=== PATIENT | male | born 2000 | race Caucasian/White ===

== ENCOUNTER 2021-05-21 18:44 | Emergency (ER) | payer SELFPAY | END 2021-05-21 19:21 | disposition left against medical advice (07) | LOC: ER 18:46 | DX: F20.9 Schizophrenia, unspecified (principal) ==

== ENCOUNTER 2021-05-22 12:33 | Emergency (ER) | payer SELFPAY | END 2021-05-22 12:45 | disposition left against medical advice (07) | LOC: EDUNIT# 12:33 → ER 12:34 | DX: F20.9 Schizophrenia, unspecified (principal) ==

== ENCOUNTER 2021-05-26 06:57 | Emergency (ER) | payer SELFPAY ==
[~2021-05-26] VITALS: Ht 172 cm; Wt 89.8 kg
[2021-05-26 07:10] VITALS: BP 186/120
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
[2021-05-26 07:58] LABS: BASOPHILS % (AUTO) 0 % (0-10); EOSINOPHILS % (AUTO) 0 % (0-10); HEMATOCRIT 44 % (40-54); LYMPHOCYTES # (AUTO) 1.5 10^3/uL (1.0-4.0); LYMPHOCYTES % (AUTO) 20 % (12-44); MEAN CORPUSCULAR HEMOGLOBIN 31 pg (25-34); MEAN CORPUSCULAR HGB CONC 34 g/dL (32-36); MEAN CORPUSCULAR VOLUME 90 fL (80-99); MEAN PLATELET VOLUME 9.3 fL (9.0-12.2); MONOCYTES # (AUTO) 0.7 10^3/uL (0.0-1.0); MONOCYTES % (AUTO) 10 % (0-12); NEUTROPHILS % (AUTO) 69 % (42-75); PLATELET COUNT 217 10^3/uL (130-400); WHITE BLOOD COUNT 7.3 10^3/uL (4.3-11.0)
[2021-05-26 08:00] LABS: CHLORIDE 102 MMOL/L (98-107); POTASSIUM 3.8 MMOL/L (3.6-5.0); SODIUM 136 MMOL/L (135-145)
[2021-05-26] MEDS ORDERED: OLANZapine 5 MG ODT (ZyPREXA ZYDIS) PO ONE (08:00)
[2021-05-26 08:01] LABS: ALBUMIN 4.3 GM/DL (3.2-4.5)
[2021-05-26 08:03] LABS: GLUCOSE 129 MG/DL (70-105); TOTAL PROTEIN 7.1 GM/DL (6.4-8.2)
[2021-05-26 08:04] LABS: CARBON DIOXIDE 22 MMOL/L (21-32)
[2021-05-26 08:05] LABS: BILIRUBIN,TOTAL 0.5 MG/DL (0.1-1.0)
[2021-05-26 08:07] LABS: ALKALINE PHOSPHATASE 73 U/L (40-136); GFR ESTIMATED 135
[2021-05-26 08:08] LABS: AMPHETAMINE SCREEN, URINE NEGATIVE (NEGATIVE); BARBITURATE SCREEN URINE NEGATIVE (NEGATIVE); BENZODIAZEPINES SCREEN URINE NEGATIVE (NEGATIVE); BUN/CREATININE RATIO 7; CANNABINOID SCREEN, URINE POSITIVE (NEGATIVE); COCAINE SCREEN URINE NEGATIVE (NEGATIVE); METHADONE STAT NEGATIVE (NEGATIVE); METHAMPHETAMINE SCREEN URINE S NEGATIVE (NEGATIVE); OPIATE SCREEN URINE NEGATIVE (NEGATIVE); OXYCODONE STAT NEGATIVE (NEGATIVE); PROPOXYPHENE STAT NEGATIVE (NEGATIVE); TRICYCLIC ANTIDEPRESSANTS SCRE NEGATIVE (NEGATIVE)
[2021-05-26 08:10] LABS: ALANINE AMINOTRANSFERASE 95 U/L (0-55); SALICYLATE < 5.0 MG/DL (5.0-20.0)
[2021-05-26 08:11] LABS: ACETAMINOPHEN < 10 UG/ML (10-30)
[2021-05-26] MEDS ORDERED: LORazepam 0.5 MG (ATIVAN) TABLET PO STA (11:59)
[2021-05-27] MEDS ORDERED: OLANZapine 5 MG ODT (ZyPREXA ZYDIS) PO ONE (06:30)
== END 2021-05-27 07:53 | disposition short-term general hospital (02) ==
LOC: EDUNIT# 06:57 → ER 06:59
DX: F20.9 Schizophrenia, unspecified (principal); Z20.822 Contact with and (suspected) exposure to COVID-19
CPT/HCPCS: 80053; 80306; 85025; 87636; 93005; 99283; G0480 ×3; 36415; 80320; 80329

== ENCOUNTER 2021-12-24 06:10 | Emergency (ER) | payer SELFPAY ==
[~2021-12-24] VITALS: Ht 172 cm; Wt 88.0 kg
--- NOTE | 2021-12-24 06:32 | ED General ---
General Stated Complaint: PAINFUL LUMP ON L SIDE OF LOW BACK Source of Information: Patient Exam Limitations: No Limitations History of Present Illness Date Seen by Provider: Dec 24, 2021 Time Seen by Provider: 06:15 Initial Comments 21-year-old male presents to the emergency department today for left low back pain. He states symptoms present for a couple of months. He is concerned it might be his liver. He denies any fevers or chills. No urinary symptoms. No changes in his bowels. He has not tried anything for symptoms. Pain is dull throbbing without radiation. No aggravating or alleviating factors. Mild. Allergies and Home Medications Allergies Coded Allergies: No Known Drug Allergies (Unverified , 05/26/21) Patient Home Medication List Home Medication List Reviewed: Yes Review of Systems Review of Systems Constitutional: no symptoms reported EENTM: no symptoms reported Respiratory: no symptoms reported Cardiovascular: no symptoms reported Gastrointestinal: no symptoms reported Genitourinary: no symptoms reported Musculoskeletal: back pain Skin: no symptoms reported Psychiatric/Neurological: No Symptoms Reported Hematologic/Lymphatic: No Symptoms Reported Immunological/Allergic: no symptoms reported Past Vywfpfh-Dxibrv-Oguyzn Hx Patient Social History Tobacco Use?: No Use of E-Cig and/or Vaping dev: No Substance use?: Yes Substance type: Marijuana Immunizations Up To Date First/Initial COVID19 Vaccinat: UNK Past Medical History Surgery/Hospitalization HX: Tonsillectomy Family Medical History Reviewed Nursing Family Hx No Pertinent Family Hx Physical Exam Vital Signs Capillary Refill : Height, Weight, BMI Height: '" Weight: lbs. oz. kg; 30.00 BMI Method: General Appearance: No Apparent Distress, WD/WN HEENT: Normal ENT Inspection, Pharynx Normal Neck: Normal Inspection, Non Tender Respiratory: Chest Non Tender, Lungs Clear, Normal Breath Sounds, No Accessory Muscle Use, No Respiratory Distress Cardiovascular: Regular Rate, Rhythm, No Edema, No Gallop, No JVD, No Murmur, Normal Peripheral Pulses Gastrointestinal: Normal Bowel Sounds, No Organomegaly, No Pulsatile Mass, Non Tender, Soft Back: Normal Inspection, No CVA Tenderness, No Vertebral Tenderness Extremity: Normal Capillary Refill, Normal Inspection, Normal Range of Motion, Non Tender, No Calf Tenderness, No Pedal Edema Neurologic/Psychiatric: Alert, Oriented x3, No Motor/Sensory Deficits Skin: Normal Color, Warm/Dry Lymphatic: No Adenopathy Progress/Results/Core Measures Suspected Sepsis SIRS Temperature: Pulse: Respiratory Rate: Blood Pressure / Mean: Results/Orders Vital Signs/I&O Capillary Refill : Departure Communication (Admissions) Patient is hemodynamically stable. He has pain in his left low back lateral of the midline. No flank pains prior. Very benign exam and unable to reproduce the pain on exam today. No urinary symptoms. No medical comorbidities or red flag type symptoms. He states he peed in the waiting room prior to coming to the room and will be able to urinate again for quite some time. He declines waiting for urine at this time. He is discharged in stable condition with supportive care. Impression Primary Impression: Left low back pain Qualified Codes: M54.50 - Low back pain, unspecified Disposition: 01 HOME, SELF-CARE Condition: Stable Departure-Patient Inst. Referrals: [facility] (PCP/Family) Primary Care Physician Patient Instructions: Low Back Pain in Adults Add. Discharge Instructions: Please use ibuprofen and Tylenol as needed for pain. You have opted not to wait to give a urine sample. You may want to follow-up with your primary doctor to provide this. Your exam and vital signs are reassuring. Turn to the emergency department for any severe concerns. Follow-up with primary physician for any nonemergent needs TRAVIS REYNOSO DO Dec 24, 2021 06:32
[2021-12-24 06:45] VITALS: BP 158/98
== END 2021-12-24 06:46 | disposition home or self-care (01) ==
LOC: EDUNIT# 06:10 → ER 06:14
DX: M54.50 Low back pain, unspecified (principal)
CPT/HCPCS: 99281

== ENCOUNTER 2022-02-10 11:04 | Emergency (ER) | payer SELFPAY ==
[~2022-02-10] VITALS: Ht 172 cm; Wt 86.0 kg
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
[2022-02-10 11:43] LABS: BILIRUBIN,URINE NEGATIVE (NEGATIVE); CLARITY,URINE CLEAR; COLOR,URINE YELLOW; GLUCOSE, URINE (UA) NEGATIVE (NEGATIVE); KETONES,URINE NEGATIVE (NEGATIVE); LEUKOCYTE ESTERASE ,URINE NEGATIVE (NEGATIVE); NITRITE,URINE NEGATIVE (NEGATIVE); PROTEIN,URINE NEGATIVE (NEGATIVE)
[2022-02-10 11:48] LABS: BASOPHILS % (AUTO) 1 % (0-10); EOSINOPHILS % (AUTO) 0 % (0-10); HEMATOCRIT 43 % (40-54); LYMPHOCYTES # (AUTO) 1.4 10^3/uL (1.0-4.0); LYMPHOCYTES % (AUTO) 20 % (12-44); MEAN CORPUSCULAR HEMOGLOBIN 30 pg (25-34); MEAN CORPUSCULAR HGB CONC 35 g/dL (32-36); MEAN CORPUSCULAR VOLUME 86 fL (80-99); MEAN PLATELET VOLUME 8.8 fL (9.0-12.2); MONOCYTES # (AUTO) 0.6 10^3/uL (0.0-1.0); MONOCYTES % (AUTO) 9 % (0-12); NEUTROPHILS # (AUTO) 4.7 10^3/uL (1.8-7.8); NEUTROPHILS % (AUTO) 70 % (42-75); PLATELET COUNT 217 10^3/uL (130-400); WHITE BLOOD COUNT 6.7 10^3/uL (4.3-11.0)
[2022-02-10 11:53] LABS: BACTERIA,URINE NEGATIVE /HPF
[2022-02-10 11:54] LABS: ALBUMIN 4.7 GM/DL (3.2-4.5); CHLORIDE 103 MMOL/L (98-107); POTASSIUM 3.9 MMOL/L (3.6-5.0); SODIUM 139 MMOL/L (135-145)
[2022-02-10 11:56] LABS: CALCIUM 9.5 MG/DL (8.5-10.1)
[2022-02-10 11:56] LABS: AMPHETAMINE SCREEN, URINE NEGATIVE (NEGATIVE); BARBITURATE SCREEN URINE NEGATIVE (NEGATIVE); BENZODIAZEPINES SCREEN URINE NEGATIVE (NEGATIVE); CANNABINOID SCREEN, URINE POSITIVE (NEGATIVE); COCAINE SCREEN URINE NEGATIVE (NEGATIVE); METHADONE STAT NEGATIVE (NEGATIVE); OPIATE SCREEN URINE NEGATIVE (NEGATIVE); OXYCODONE STAT NEGATIVE (NEGATIVE); PROPOXYPHENE STAT NEGATIVE (NEGATIVE); TRICYCLIC ANTIDEPRESSANTS SCRE NEGATIVE (NEGATIVE)
[2022-02-10 11:57] LABS: GLUCOSE 96 MG/DL (70-105); TOTAL PROTEIN 7.3 GM/DL (6.4-8.2)
[2022-02-10 11:58] LABS: CARBON DIOXIDE 24 MMOL/L (21-32)
[2022-02-10 11:59] LABS: BILIRUBIN,TOTAL 1.6 MG/DL (0.1-1.0)
[2022-02-10 12:01] LABS: ALKALINE PHOSPHATASE 78 U/L (40-136); GFR ESTIMATED 129
[2022-02-10 12:02] LABS: BUN/CREATININE RATIO 10
[2022-02-10 12:03] LABS: SALICYLATE < 5.0 MG/DL (5.0-20.0)
[2022-02-10 12:04] LABS: ALANINE AMINOTRANSFERASE 32 U/L (0-55)
[2022-02-10 12:10] LABS: ACETAMINOPHEN < 10 UG/ML (10-30)
[2022-02-10 20:13] VITALS: BP 153/89
== END 2022-02-10 20:13 ==
LOC: EDUNIT# 11:04 → ER 11:06
DX: R45.851 Suicidal ideations (principal); F17.200 Nicotine dependence, unspecified, uncomplicated; Z28.311 Partially vaccinated for COVID-19; Z20.822 Contact with and (suspected) exposure to COVID-19
CPT/HCPCS: 80053; 80306; 81000; 85025; 87636; 99283; G0480 ×3; 36415; 80320; 80329

== ENCOUNTER 2022-05-23 10:56 | Emergency (ER) | payer MEDICAID ==
[~2022-05-23] VITALS: Ht 175.3 cm; Wt 99.8 kg
[2022-05-23 12:22] LABS: BASOPHILS % (AUTO) 0 % (0-10); EOSINOPHILS % (AUTO) 1 % (0-10); HEMATOCRIT 43 % (40-54); HEMOGLOBIN 14.8 g/dL (13.3-17.7); LYMPHOCYTES # (AUTO) 1.6 10^3/uL (1.0-4.0); LYMPHOCYTES % (AUTO) 22 % (12-44); MEAN CORPUSCULAR HEMOGLOBIN 29 pg (25-34); MEAN CORPUSCULAR HGB CONC 35 g/dL (32-36); MEAN CORPUSCULAR VOLUME 85 fL (80-99); MEAN PLATELET VOLUME 8.5 fL (9.0-12.2); MONOCYTES # (AUTO) 0.5 10^3/uL (0.0-1.0); MONOCYTES % (AUTO) 8 % (0-12); NEUTROPHILS % (AUTO) 69 % (42-75); PLATELET COUNT 218 10^3/uL (130-400); WHITE BLOOD COUNT 7.2 10^3/uL (4.3-11.0)
[2022-05-23 12:24] LABS: BILIRUBIN,URINE NEGATIVE (NEGATIVE); CLARITY,URINE CLEAR; COLOR,URINE YELLOW; GLUCOSE, URINE (UA) NEGATIVE (NEGATIVE); KETONES,URINE NEGATIVE (NEGATIVE); LEUKOCYTE ESTERASE ,URINE NEGATIVE (NEGATIVE); NITRITE,URINE NEGATIVE (NEGATIVE); PROTEIN,URINE TRACE (NEGATIVE)
[2022-05-23 12:36] LABS: ALBUMIN 4.5 GM/DL (3.2-4.5); CHLORIDE 103 MMOL/L (98-107); POTASSIUM 3.6 MMOL/L (3.6-5.0); SODIUM 139 MMOL/L (135-145)
[2022-05-23 12:37] LABS: CALCIUM 9.2 MG/DL (8.5-10.1)
[2022-05-23 12:38] LABS: GLUCOSE 120 MG/DL (70-105)
[2022-05-23 12:39] LABS: CARBON DIOXIDE 25 MMOL/L (21-32); TOTAL PROTEIN 7.5 GM/DL (6.4-8.2)
[2022-05-23 12:40] LABS: BILIRUBIN,TOTAL 1.2 MG/DL (0.1-1.0)
[2022-05-23 12:42] LABS: ALKALINE PHOSPHATASE 74 U/L (40-136); AMPHETAMINE SCREEN, URINE NEGATIVE (NEGATIVE); BARBITURATE SCREEN URINE NEGATIVE (NEGATIVE); BENZODIAZEPINES SCREEN URINE NEGATIVE (NEGATIVE); CANNABINOID SCREEN, URINE POSITIVE (NEGATIVE); COCAINE SCREEN URINE NEGATIVE (NEGATIVE); GFR ESTIMATED 129; METHADONE STAT NEGATIVE (NEGATIVE); OPIATE SCREEN URINE NEGATIVE (NEGATIVE); OXYCODONE STAT NEGATIVE (NEGATIVE); PROPOXYPHENE STAT NEGATIVE (NEGATIVE); TRICYCLIC ANTIDEPRESSANTS SCRE NEGATIVE (NEGATIVE)
[2022-05-23 12:44] LABS: BUN/CREATININE RATIO 13
[2022-05-23 12:45] LABS: ALANINE AMINOTRANSFERASE 44 U/L (0-55); SALICYLATE < 5.0 MG/DL (5.0-20.0)
--- NOTE | 2022-05-23 12:46 | ED Psychosocial ---
General Chief Complaint: Suicidal Ideation Risk Stated Complaint: SUICIDAL IDEATION Nursing Triage Note: PT AMBULATE TO TRIAGE WITHOUT DIFFICULTY WITH C/O SUICIDAL THOUGHTS X2. PT STATES HE WOULD CUT WRISTS "MAIN ARTERY" WITH A RAZOR BLADE. PT STATES HE CALLED [facility] AND COULD NOT GET AN APPT. Source: patient Exam Limitations: no limitations (YANELY PALMER) History of Present Illness Date Seen by Provider: May 23, 2022 Time Seen by Provider: 12:44 Initial Comments Patient is a 21-year-old male with a history of schizophrenia, bipolar, depress ion, anxiety who presents ED with suicidal thoughts and hearing voices. Reports a history of mental health concerns over the past 2 years. Does see a behavioral health specialist at [facility]. Not currently on medication. He reports increased stressors. Patient states he is sad because of what is going on in the world. He states he is hearing voices telling him to hurt others as well as himself. He states he would not act upon this. He had recent suicidal thoughts of using a razor blade to cut one of his arteries to bleed out. 1 week ago he drank a bottle of liquor and took 8 pills of Xanax to drown his thoughts. Patient is currently voluntary and seeking help. Denies eyes of any chest pain, shortness of breath, drug use, headache, dizziness, visual changes. (YANELY PALMER) Allergies and Home Medications Allergies Coded Allergies: No Known Drug Allergies (Unverified , 05/26/21) Patient Home Medication List Home Medication List Reviewed: Yes (YANELY PALMER) Review of Systems Constitutional: No chills, No diaphoresis, No malaise, No weakness EENTM: No hearing loss, No blurred vision, No double vision Respiratory: No cough, No dyspnea on exertion Cardiovascular: No chest pain, No edema Gastrointestinal: No abdominal pain, No diarrhea, No nausea, No vomiting Genitourinary: No decreased output, No discharge, No dysuria, No frequency Musculoskeletal: No back pain, No joint pain Skin: No change in color, No change in hair/nails (YANELY PALMER) All Other Systems Reviewed Negative Unless Noted: Yes (YANELY PALMER) Past Iztulpp-Nilqfu-Flddiw Hx Patient Social History Tobacco Use?: Yes Tobacco type used: Cigarettes Smoking Status: Current Everyday Smoker Smokeless Tobacco Frequency: Never a User Use of E-Cig and/or Vaping dev: No Use of E-Cig and/or Vaping Luther: Never a User Substance use?: No Alcohol Use?: Yes Alcohol Frequency: Rarely Pt feels they are or have been: No (YANELY PALMER) Immunizations Up To Date First/Initial COVID19 Vaccinat: UNK Second COVID19 Vaccination Ravindra: UNK Third COVID19 Vaccination Date: UNK (YANELY PALMER) Past Medical History Surgery/Hospitalization HX: Tonsillectomy (YANELY PALMER) Family Medical History No Pertinent Family Hx (YANELY PALMER) Physical Exam Vital Signs - First Documented 05/23/22 11:40 Temp 36.7 Pulse 90 Resp 17 B/P (MAP) 129/81 (97) O2 Delivery Room Air (LESIA BREWER MD) Capillary Refill : Less Than 3 Seconds (YANELY PALMER) Height, Weight, BMI Height: '" Weight: lbs. oz. 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, no motor/sensory deficits, alert, normal mood/affect, oriented x 3 Appearance/Memory: appropriate appearance Behavior/Eye Contact: cooperative, good eye contact, normal speech Thoughts/Hallucinations: auditory hallucinations; No incoherent, No tactile hallucinations Skin: normal color, warm/dry (YANELY PALMER) Progress/Results/Core Measures Results/Orders Lab Results Laboratory Tests Test 05/23/22 12:13 05/23/22 12:30 05/23/22 13:06 Range/Units White Blood Count 7.2 4.3-11.0 10^3/uL Red Blood Count 5.06 4.30-5.52 10^6/uL Hemoglobin 14.8 13.3-17.7 g/dL Hematocrit 43 40-54 % Mean Corpuscular Volume 85 80-99 fL Mean Corpuscular Hemoglobin 29 25-34 pg Mean Corpuscular Hemoglobin Concent 35 32-36 g/dL Red Cell Distribution Width 12.6 10.0-14.5 % Platelet Count 218 130-400 10^3/uL Mean Platelet Volume 8.5 L 9.0-12.2 fL Immature Granulocyte % (Auto) 0 % Neutrophils (%) (Auto) 69 42-75 % Lymphocytes (%) (Auto) 22 12-44 % Monocytes (%) (Auto) 8 0-12 % Eosinophils (%) (Auto) 1 0-10 % Basophils (%) (Auto) 0 0-10 % Neutrophils # (Auto) 5.0 1.8-7.8 10^3/uL Lymphocytes # (Auto) 1.6 1.0-4.0 10^3/uL Monocytes # (Auto) 0.5 0.0-1.0 10^3/uL Eosinophils # (Auto) 0.0 0.0-0.3 10^3/uL Basophils # (Auto) 0.0 0.0-0.1 10^3/uL Immature Granulocyte # (Auto) 0.0 0.0-0.1 10^3/uL Urine Color YELLOW Urine Clarity CLEAR Urine pH 7.0 5-9 Urine Specific [place] 1.020 1.016-1.022 Urine Protein TRACE H NEGATIVE Urine Glucose (UA) NEGATIVE NEGATIVE Urine Ketones NEGATIVE NEGATIVE Urine Nitrite NEGATIVE NEGATIVE Urine Bilirubin NEGATIVE NEGATIVE Urine Urobilinogen 1.0 < = 1.0 MG/DL Urine Leukocyte Esterase NEGATIVE NEGATIVE Urine RBC (Auto) NEGATIVE NEGATIVE Urine RBC RARE /HPF Urine WBC RARE /HPF Urine Squamous Epithelial Cells RARE /HPF Urine Crystals PRESENT H /LPF Urine Amorphous Sediment MOD CHANI PHOSPHATE H /LPF Urine Bacteria FEW H /HPF Urine Casts NONE /LPF Urine Mucus MODERATE H /LPF Urine Culture Indicated NO Sodium Level 139 135-145 MMOL/L Potassium Level 3.6 3.6-5.0 MMOL/L Chloride Level 103 98-107 MMOL/L Carbon Dioxide Level 25 21-32 MMOL/L Anion Gap 11 5-14 MMOL/L Blood Urea Nitrogen 10 7-18 MG/DL Creatinine 0.80 0.60-1.30 MG/DL Estimat Glomerular Filtration Rate 129 BUN/Creatinine Ratio 13 Glucose Level 120 H 70-105 MG/DL Calcium Level 9.2 8.5-10.1 MG/DL Corrected Calcium 8.8 8.5-10.1 MG/DL Total Bilirubin 1.2 H 0.1-1.0 MG/DL Aspartate Amino Transf (AST/SGOT) 24 5-34 U/L Alanine Aminotransferase (ALT/SGPT) 44 0-55 U/L Alkaline Phosphatase 74 40-136 U/L Total Protein 7.5 6.4-8.2 GM/DL Albumin 4.5 3.2-4.5 GM/DL Salicylates Level < 5.0 L 5.0-20.0 MG/DL Urine Opiates Screen NEGATIVE NEGATIVE Urine Oxycodone Screen NEGATIVE NEGATIVE Urine Methadone Screen NEGATIVE NEGATIVE Urine Propoxyphene Screen NEGATIVE NEGATIVE Acetaminophen Level < 10 L 10-30 UG/ML Urine Barbiturates Screen NEGATIVE NEGATIVE Ur Tricyclic Antidepressants Screen NEGATIVE NEGATIVE Urine Phencyclidine Screen NEGATIVE NEGATIVE Urine Amphetamines Screen NEGATIVE NEGATIVE Urine Methamphetamines Screen NEGATIVE NEGATIVE Urine Benzodiazepines Screen NEGATIVE NEGATIVE Urine Cocaine Screen NEGATIVE NEGATIVE Urine Cannabinoids Screen POSITIVE H NEGATIVE Serum Alcohol < 10 <10 MG/DL Influenza Type A (RT-PCR) Not Detected Not Detecte Influenza Type B (RT-PCR) Not Detected Not Detecte SARS-CoV-2 RNA (RT-PCR) Not Detected Not Detecte (LESIA BREWER MD) My Orders Orders - LESIA BREWER MD Ua Culture If Indicated (05/23/22 11:37) Cbc With Automated Diff (05/23/22 11:37) Comprehensive Metabolic Panel (05/23/22 11:37) Alcohol (05/23/22 11:37) Drug Screen Stat (Urine) (05/23/22 11:37) Acetaminophen (05/23/22 11:37) Salicylate (05/23/22 11:37) Ekg Tracing (05/23/22 11:37) Ed Iv/Invasive Line Start (05/23/22 11:37) Monitor-Rhythm Ecg Trace Only (05/23/22 11:37) Bh Status Checks/Observation O Q15M (05/23/22 11:37) (LESIA BREWER MD) Vital Signs/I&O 05/23/22 05/23/22 11:40 17:34 Temp 36.7 36.7 Pulse 90 81 Resp 17 18 B/P (MAP) 129/81 (97) 124/74 O2 Delivery Room Air Room Air (LESIA BREWER MD) Blood Pressure Mean: 97 Departure Communication (PCP) Patient with auditory hallucinations. Patient with a history of SI. Not cu rrent suicidal. Thoughts few days ago of using a razor blade to cut himself and potentially bleed out. Reports drinking a bottle of liquor about a week ago with 8 pills of Xanax. Positive for marijuana. Lab work was otherwise unremarkable. Cooperative. Auditory hallucinations actively. Patient is calm and polite. Patient medically stable. Patient was evaluated by behavioral health. Recommended inpatient. Currently voluntary. Patient was accepted at [facility] by Dr. Graham. Patient states before discharge he wanted to be checked for sexual transmitted infection. Urine pending for chlamydia and gonorrhea. Was not treated empirically. History of STD currently sexually active. Reports some mild burning with urination. We will follow-up with culture (YANELY PALMER) Impression Primary Impression: Suicidal ideation Disposition: ADMITTED INPATIENT Condition: Stable Transfer Transfer Reason: Exceeds level of care Time Spoke to Accepting Phy: 15:42 Transfer Progress Notes accepting Dr. Graham Transfer Time: 15:42 Transfer Facility: [facility] Method of Transfer: Private Vehicle (YANELY PALMER) Departure-Patient Inst. Referrals: [facility] (PCP/Family) Primary Care Physician Patient Instructions: OUTPT MENTAL HEALTH SERVICES ATTENDING PHYSICIAN NOTE: I was physically present as attending physician in the emergency department during the care of this patient, but I was not directly involved in the decision making or delivery of care for this patient. (LESIA BREWER MD) YANELY PALMER May 23, 2022 12:46 LESIA BREWER MD May 23, 2022 20:55
[2022-05-23 12:51] LABS: ACETAMINOPHEN < 10 UG/ML (10-30); AMORPHOUS SEDIMENT,UR MOD AMOR PHOSPHATE /LPF; BACTERIA,URINE FEW /HPF; RBC,URINE RARE /HPF; SQUAMOUS EPITHELIAL CELL,UR RARE /HPF; WBC,URINE RARE /HPF
[2022-05-23 17:34] VITALS: BP 124/74
== END 2022-05-23 17:37 ==
LOC: EDUNIT# 10:56 → ER 11:00
DX: R45.851 Suicidal ideations (principal); R44.0 Auditory hallucinations; R30.9 Painful micturition, unspecified; F17.210 Nicotine dependence, cigarettes, uncomplicated; Z86.59 Personal history of other mental and behavioral disorders; Z20.822 Contact with and (suspected) exposure to COVID-19
CPT/HCPCS: 80053; 80306; 81000; 85025; 87491; 87591; 87636; 93005; 99285; G0480 ×3; 36415; 80320; 80329

== ENCOUNTER 2022-06-06 19:38 | Emergency (ER) | payer MEDICAID ==
[~2022-06-06] VITALS: Ht 172 cm; Wt 102.5 kg
[2022-06-06] MEDS ORDERED: OLANZapine 5 MG ODT (ZyPREXA ZYDIS) SL STA (19:53)
[2022-06-06] MEDS ORDERED: LACTATED RINGERS 1,000 ML IV ONE (20:00)
[2022-06-06 20:04] LABS: BASOPHILS % (AUTO) 0 % (0-10); EOSINOPHILS # (AUTO) 0.1 10^3/uL (0.0-0.3); EOSINOPHILS % (AUTO) 1 % (0-10); HEMATOCRIT 44 % (40-54); HEMOGLOBIN 15.1 g/dL (13.3-17.7); LYMPHOCYTES # (AUTO) 2.4 10^3/uL (1.0-4.0); LYMPHOCYTES % (AUTO) 28 % (12-44); MEAN CORPUSCULAR HEMOGLOBIN 29 pg (25-34); MEAN CORPUSCULAR HGB CONC 35 g/dL (32-36); MEAN CORPUSCULAR VOLUME 84 fL (80-99); MEAN PLATELET VOLUME 8.6 fL (9.0-12.2); MONOCYTES # (AUTO) 0.8 10^3/uL (0.0-1.0); MONOCYTES % (AUTO) 9 % (0-12); NEUTROPHILS # (AUTO) 5.3 10^3/uL (1.8-7.8); NEUTROPHILS % (AUTO) 62 % (42-75); PLATELET COUNT 241 10^3/uL (130-400); WHITE BLOOD COUNT 8.6 10^3/uL (4.3-11.0)
[2022-06-06 20:06] LABS: BILIRUBIN,URINE NEGATIVE (NEGATIVE); CLARITY,URINE CLEAR; COLOR,URINE YELLOW; GLUCOSE, URINE (UA) NEGATIVE (NEGATIVE); KETONES,URINE NEGATIVE (NEGATIVE); LEUKOCYTE ESTERASE ,URINE NEGATIVE (NEGATIVE); NITRITE,URINE NEGATIVE (NEGATIVE); PROTEIN,URINE 1+ (NEGATIVE)
[2022-06-06 20:13] LABS: ALBUMIN 4.6 GM/DL (3.2-4.5); CHLORIDE 102 MMOL/L (98-107); POTASSIUM 3.7 MMOL/L (3.6-5.0); SODIUM 140 MMOL/L (135-145)
[2022-06-06 20:14] LABS: CALCIUM 9.5 MG/DL (8.5-10.1)
[2022-06-06 20:15] LABS: GLUCOSE 143 MG/DL (70-105); TOTAL PROTEIN 7.7 GM/DL (6.4-8.2)
[2022-06-06 20:16] LABS: CARBON DIOXIDE 25 MMOL/L (21-32)
[2022-06-06 20:17] LABS: BILIRUBIN,TOTAL 0.5 MG/DL (0.1-1.0)
[2022-06-06 20:19] LABS: WBC,URINE 0-2 /HPF
[2022-06-06 20:19] LABS: ALKALINE PHOSPHATASE 77 U/L (40-136); CREATININE SERUM 0.84 MG/DL (0.60-1.30); GFR ESTIMATED 127
[2022-06-06 20:20] LABS: BUN/CREATININE RATIO 14
[2022-06-06 20:20] LABS: AMORPHOUS SEDIMENT,UR FEW AMOR URATES /LPF; BACTERIA,URINE FEW /HPF
[2022-06-06 20:22] LABS: AMPHETAMINE SCREEN, URINE NEGATIVE (NEGATIVE); BARBITURATE SCREEN URINE NEGATIVE (NEGATIVE); BENZODIAZEPINES SCREEN URINE NEGATIVE (NEGATIVE); CANNABINOID SCREEN, URINE POSITIVE (NEGATIVE); COCAINE SCREEN URINE NEGATIVE (NEGATIVE); METHADONE STAT NEGATIVE (NEGATIVE); OPIATE SCREEN URINE NEGATIVE (NEGATIVE); OXYCODONE STAT NEGATIVE (NEGATIVE); PROPOXYPHENE STAT NEGATIVE (NEGATIVE); TRICYCLIC ANTIDEPRESSANTS SCRE NEGATIVE (NEGATIVE)
[2022-06-06 20:22] LABS: ALANINE AMINOTRANSFERASE 34 U/L (0-55); SALICYLATE < 5.0 MG/DL (5.0-20.0)
[2022-06-06 20:33] LABS: ACETAMINOPHEN < 10 UG/ML (10-30)
[2022-06-06] MEDS ORDERED: ALPRAZolam 0.5 MG (XANAX) TAB PO STA (21:03)
[2022-06-06] MEDS ORDERED: OLANZapine 5 MG ODT (ZyPREXA ZYDIS) PO ONE (21:15)
--- NOTE | 2022-06-06 21:16 | ED Psychosocial ---
General Chief Complaint: Psych/Social Disorder Stated Complaint: PSYCH EVAL Nursing Triage Note: PT BROUGHT IN BY EMS REPORTING AUDITORY AND VISUAL HALLUCINATIONS AFTER TAKING A THC GUMMY. PT STATES "I FEEL LIKE I'M HAVING SYMPTOMS OF PSYCHOSIS." PT HASN'T TAKEN HIS ANTIPSYCHOTICS X 1 WEEK SINCE HE WAS DISCHARGED FROM [facility]. DENIES SI/HI. Source: patient, old records Exam Limitations: no limitations History of Present Illness Date Seen by Provider: Jun 06, 2022 Time Seen by Provider: 19:35 Initial Comments This 21-year-old young man presents to the emergency room with exacerbation of schizophrenia symptoms including visual and auditory hallucinations. He was admitted at the [facility] [place] last week and believes he was discharged last Saturday. The history is a bit confusing as EMS reported he had been admitted in [place], [place]. Patient states that he received and Invega injection 1 to 2 weeks ago and that it was a double dose. This report does not make sense according to his medication history and delivery method of Invega. He is not taking any oral medications for maintenance of schizophrenia at this time. He reports his mental health provider is someone by the last name of Mikey with [facility] and his primary care is with the [facility]. He was having uncontrolled symptoms of schizophrenia prior to using a THC sucker today but his symptoms became much worse after using a THC sucker about 3 hours ago. He reports hearing people screaming at him and talking to him. He has insight that these are hallucinations. He does not report command hallucinations to harm himself or anyone else. He is seeing visual hallucinations of "trippy stuff". He seems a bit confused about his history. He reports no behavioral health medications have been taken since he left [facility]. He is under the impression none were prescribed. Since leaving the hospital he has been staying at his own apartment and with his mom. He reports recently taking Xanax he received from his aunt and that he has purchased from others. He has not used any in the last 1.5 weeks. He has denied suicidal or homicidal ideology multiple times to this provider and staff. He reportedly was suicidal when he was admitted last week. He is notably tachycardic with a sinus tachycardia in the 120-140 range. He appears anxious and is aware of his tachycardia which he identifies as a sensation of racing heart. He does not have chest pain. He feels like he cannot take deep breaths but he is moving air quite well on exam without any wheezing. Patient reports he has also been using a delta 8 pen. Patient is polite, cooperative, and requesting help. He is specifically asking to be readmitted to [facility] to get his symptoms under control. Allergies and Home Medications Allergies Coded Allergies: No Known Drug Allergies (Unverified , 05/26/21) Patient Home Medication List Home Medication List Reviewed: Yes Review of Systems Constitutional: no symptoms reported EENTM: no symptoms reported Respiratory: no symptoms reported Cardiovascular: see HPI Gastrointestinal: no symptoms reported Genitourinary: no symptoms reported Musculoskeletal: no symptoms reported Skin: no symptoms reported Psychiatric/Neurological: See HPI Past Nxzpolf-Vbbiqt-Bkoqap Hx Patient Social History Tobacco Use?: Yes Tobacco type used: Cigarettes Smoking Status: Current Everyday Smoker Use of E-Cig and/or Vaping dev: No Substance use?: Yes Substance type: Marijuana, Other Additional substance use comme: DELTA 8 Alcohol Use?: No Pt feels they are or have been: No Immunizations Up To Date Influenza Vaccine Up-to-Date: No; Not Current First/Initial COVID19 Vaccinat: UNK Second COVID19 Vaccination Ravindra: UNK Third COVID19 Vaccination Date: UNK Past Medical History Surgery/Hospitalization HX: Tonsillectomy Surgeries: Yes Tonsillectomy Respiratory: Yes Asthma Cardiac: No Neurological: No Genitourinary: No Gastrointestinal: No Musculoskeletal: No Endocrine: No HEENT: No Cancer: No Psychosocial: Yes (Admissions for suicidal ideation, polysubstance abuse, self cutting) Schizophrenia Family Medical History No Pertinent Family Hx Physical Exam Vital Signs - First Documented 06/06/22 19:40 Temp 36.9 Pulse 134 Resp 20 B/P (MAP) 130/85 (100) Pulse Ox 98 O2 Delivery Room Air Capillary Refill : Less Than 3 Seconds Height, Weight, BMI Height: '" Weight: lbs. oz. kg; 34.00 BMI Method: General Appearance: WD/WN, mild distress HEENT: PERRL/EOMI, normal ENT inspection, pharynx normal, other (Oropharynx somewhat dry) Neck: normal inspection Respiratory: lungs clear, normal breath sounds, no respiratory distress, no accessory muscle use; No crackles, No wheezing; other (Moves air very well) Cardiovascular: no edema, no murmur, tachycardia (Sinus) Gastrointestinal: non tender, soft Extremities: no pedal edema, other (Well-healed scarring on both arms from cutting behavior) Neurologic/Psychiatric: no motor/sensory deficits, alert, oriented x 3 Appearance/Memory: appropriate appearance, neat, impaired recent memory, other (Has insight into his hallucinations) Behavior/Eye Contact: cooperative (Polite), avoids eye contact Thoughts/Hallucinations: auditory hallucinations (And visual hallucinations) Skin: normal color, warm/dry Progress/Results/Core Measures Results/Orders Lab Results Laboratory Tests Test 06/06/22 19:57 06/06/22 20:00 06/06/22 21:01 Range/Units White Blood Count 8.6 4.3-11.0 10^3/uL Red Blood Count 5.18 4.30-5.52 10^6/uL Hemoglobin 15.1 13.3-17.7 g/dL Hematocrit 44 40-54 % Mean Corpuscular Volume 84 80-99 fL Mean Corpuscular Hemoglobin 29 25-34 pg Mean Corpuscular Hemoglobin Concent 35 32-36 g/dL Red Cell Distribution Width 12.5 10.0-14.5 % Platelet Count 241 130-400 10^3/uL Mean Platelet Volume 8.6 L 9.0-12.2 fL Immature Granulocyte % (Auto) 0 % Neutrophils (%) (Auto) 62 42-75 % Lymphocytes (%) (Auto) 28 12-44 % Monocytes (%) (Auto) 9 0-12 % Eosinophils (%) (Auto) 1 0-10 % Basophils (%) (Auto) 0 0-10 % Neutrophils # (Auto) 5.3 1.8-7.8 10^3/uL Lymphocytes # (Auto) 2.4 1.0-4.0 10^3/uL Monocytes # (Auto) 0.8 0.0-1.0 10^3/uL Eosinophils # (Auto) 0.1 0.0-0.3 10^3/uL Basophils # (Auto) 0.0 0.0-0.1 10^3/uL Immature Granulocyte # (Auto) 0.0 0.0-0.1 10^3/uL Sodium Level 140 135-145 MMOL/L Potassium Level 3.7 3.6-5.0 MMOL/L Chloride Level 102 98-107 MMOL/L Carbon Dioxide Level 25 21-32 MMOL/L Anion Gap 13 5-14 MMOL/L Blood Urea Nitrogen 12 7-18 MG/DL Creatinine 0.84 0.60-1.30 MG/DL Estimat Glomerular Filtration Rate 127 BUN/Creatinine Ratio 14 Glucose Level 143 H 70-105 MG/DL Calcium Level 9.5 8.5-10.1 MG/DL Corrected Calcium 8.5-10.1 MG/DL Total Bilirubin 0.5 0.1-1.0 MG/DL Aspartate Amino Transf (AST/SGOT) 19 5-34 U/L Alanine Aminotransferase (ALT/SGPT) 34 0-55 U/L Alkaline Phosphatase 77 40-136 U/L Total Protein 7.7 6.4-8.2 GM/DL Albumin 4.6 H 3.2-4.5 GM/DL TSH [place] Testing 0.69 0.35-4.94 UIU/ML Salicylates Level < 5.0 L 5.0-20.0 MG/DL Acetaminophen Level < 10 L 10-30 UG/ML Serum Alcohol < 10 <10 MG/DL Urine Color YELLOW Urine Clarity CLEAR Urine pH 6.0 5-9 Urine Specific [place] 1.025 H 1.016-1.022 Urine Protein 1+ H NEGATIVE Urine Glucose (UA) NEGATIVE NEGATIVE Urine Ketones NEGATIVE NEGATIVE Urine Nitrite NEGATIVE NEGATIVE Urine Bilirubin NEGATIVE NEGATIVE Urine Urobilinogen 0.2 < = 1.0 MG/DL Urine Leukocyte Esterase NEGATIVE NEGATIVE Urine RBC (Auto) NEGATIVE NEGATIVE Urine RBC NONE /HPF Urine WBC 0-2 /HPF Urine Squamous Epithelial Cells NONE /HPF Urine Crystals PRESENT H /LPF Urine Amorphous Sediment FEW CHANI URATES H /LPF Urine Bacteria FEW H /HPF Urine Casts NONE /LPF Urine Mucus SMALL H /LPF Urine Culture Indicated NO Urine Opiates Screen NEGATIVE NEGATIVE Urine Oxycodone Screen NEGATIVE NEGATIVE Urine Methadone Screen NEGATIVE NEGATIVE Urine Propoxyphene Screen NEGATIVE NEGATIVE Urine Barbiturates Screen NEGATIVE NEGATIVE Ur Tricyclic Antidepressants Screen NEGATIVE NEGATIVE Urine Phencyclidine Screen NEGATIVE NEGATIVE Urine Amphetamines Screen NEGATIVE NEGATIVE Urine Methamphetamines Screen NEGATIVE NEGATIVE Urine Benzodiazepines Screen NEGATIVE NEGATIVE Urine Cocaine Screen NEGATIVE NEGATIVE Urine Cannabinoids Screen POSITIVE H NEGATIVE SARS-CoV-2 RNA (RT-PCR) Not Detected Not Detecte My Orders Orders - LESIA BREWER MD Drug Screen Stat (Urine) (06/06/22 19:41) Ua Culture If Indicated (06/06/22 19:53) Cbc With Automated Diff (06/06/22 19:53) Comprehensive Metabolic Panel (06/06/22 19:53) Alcohol (06/06/22 19:53) Acetaminophen (06/06/22 19:53) Salicylate (06/06/22 19:53) Ekg Tracing (06/06/22 19:53) Ed Iv/Invasive Line Start (06/06/22 19:53) Thyroid Analyzer (06/06/22 19:53) Monitor-Rhythm Ecg Trace Only (06/06/22 19:53) Bh Status Checks/Observation O Q15M (06/06/22 19:53) Ed Iv/Invasive Line Start (06/06/22 19:53) Lactated Ringers (Lr 1000 Ml Iv Solution (06/06/22 20:00) Olanzapine Orally Dissolve Tab (Zyprexa (06/06/22 19:53) Covid 19 Inhouse Test (06/06/22 20:59) Alprazolam Tablet (Xanax Tablet) (06/06/22 21:03) Olanzapine Orally Dissolve Tab (Zyprexa (06/06/22 21:15) Medications Given in ED Current Medications Medications Dose Ordered Sig/Radha Route Start Time Stop Time Status Last Admin Dose Admin Lactated Ringer's 1,000 ml @ 0 mls/hr Q0M ONCE IV 06/06/22 20:00 06/06/22 20:01 DC 06/06/22 20:25 1,000 MLS/HR Olanzapine 2.5 mg ONCE ONCE PO 06/06/22 21:15 06/06/22 21:16 DC 06/06/22 21:12 2.5 MG Vital Signs/I&O 06/06/22 06/06/22 19:40 23:35 Temp 36.9 Pulse 134 103 Resp 20 20 B/P (MAP) 130/85 (100) 103/68 Pulse Ox 98 99 O2 Delivery Room Air Room Air Blood Pressure Mean: 100 Progress Progress Note #1: Time: 21:21 Progress Note Patient received Zyprexa 2.5 mg and a liter of IV fluid. This did improve his heart rate into the 110s. Hallucinations have improved somewhat, but he reports still hearing the screaming voices when he is alone. An additional 2.5 mg of Zyprexa is being administered. He also reports still feeling a sensation of anxiousness and racing heart despite improved heart rate. He was offered Xanax which he appreciated. He does believe these symptoms are related to anxiety and Xanax has helped in the past. Of note, he did have a prior overdose on Xanax noted on his prior ED record. Work-up including CBC, CMP, urinalysis, thyroid analyzer, urine drug screen, and EKG was reviewed in entirety. Presence of THC in the urine toxicology screen was noted. No other significant abnormalities were appreciated. The sinus tachycardia noted on EKG has been improving with treatment. QTc interval was 426 ms. I have contacted [facility] and they do have a bed available for him. Bed assignment has not yet been given. [facility] is available for transport if before 2230. Progress Note #2: Time: 23:39 Progress Note Patient has received a total of Zyprexa 5 mg and Xanax 0.5 mg. He has been calm and quiet throughout his ER stay. Transfer was excepted to the [facility] by Dr. Sheehan, psychiatrist. [facility] will be transporting. Initial ECG Impression Date: Jun 06, 2022 Initial ECG Impression Time: 20:06 Initial ECG Rate: 125 Initial ECG Rhythm: S.Tach Initial ECG Intervals: Normal Comment Sinus tachycardia with no ST elevation or depression. No abnormal intervals or axis deviation. Departure Impression Primary Impression: Schizophrenia Qualified Codes: F20.9 - Schizophrenia, unspecified Additional Impressions: Hallucinations Anxiety Sinus tachycardia Polysubstance abuse Disposition: 65 XFER TO PSYCH HOSP/UNIT Condition: Improved Transfer Transfer Reason: Exceeds level of care Time Spoke to Accepting Phy: 21:15 Transfer Progress Notes Transfer accepted by Dr. Sheehan at the [facility]. Transfer Time: 23:39 Transfer Facility: [facility] Method of Transfer: [facility] Departure-Patient Inst. Referrals: [facility] (PCP/Family) Primary Care Physician LESIA BREWER MD Jun 06, 2022 21:16
[2022-06-06 23:35] VITALS: BP 103/68
== END 2022-06-06 23:43 ==
LOC: EDUNIT# 19:38 → ER 19:39
DX: F20.9 Schizophrenia, unspecified (principal); T43.596A Underdosing of other antipsychotics and neuroleptics, initial encounter; F41.9 Anxiety disorder, unspecified; F19.10 Other psychoactive substance abuse, uncomplicated; F17.210 Nicotine dependence, cigarettes, uncomplicated; Z91.128 Patient's intentional underdosing of medication regimen for other reason; Z20.822 Contact with and (suspected) exposure to COVID-19; Z28.310 Unvaccinated for COVID-19
CPT/HCPCS: 80053; 80306; 81000; 84443; 85025; 87636; 93005; 93041; 99285; G0480 ×3; 36415; 80320; 80329

== ENCOUNTER → 2022-09-10 | Outpatient (CLI) | payer MEDICAID ==
[~2022-09-10] MED LIST: RT-ALBUTEROL SULF 2.5 MG/3 ML PRE-MIX VIAL INH ONE
== END ==
LOC: RT 15:08
PROVIDERS: ATTEND Nurse Practitioner Family
DX: Z87.09 Personal history of other diseases of the respiratory system (principal)
CPT/HCPCS: 94060; 94726; 94729

== ENCOUNTER 2022-09-30 14:49 | Emergency (ER) | payer MEDICAID ==
[~2022-09-30] VITALS: Ht 172.7 cm; Wt 102.5 kg
[2022-09-30 15:08] LABS: BILIRUBIN,URINE NEGATIVE (NEGATIVE); CLARITY,URINE CLOUDY; COLOR,URINE YELLOW; GLUCOSE, URINE (UA) NEGATIVE (NEGATIVE); KETONES,URINE NEGATIVE (NEGATIVE); LEUKOCYTE ESTERASE ,URINE NEGATIVE (NEGATIVE); NITRITE,URINE NEGATIVE (NEGATIVE); PH,URINE 6.5 (5-9); PROTEIN,URINE NEGATIVE (NEGATIVE)
--- NOTE | 2022-09-30 15:09 | ED Psychosocial ---
General Chief Complaint: Psych/Social Disorder Stated Complaint: SEVERE ANXIETY Source: patient Exam Limitations: no limitations History of Present Illness Date Seen by Provider: Sep 30, 2022 Time Seen by Provider: 15:06 Initial Comments Patient is a 22-year-old male who presents ED with anxiety. Patient states his anxiety has gotten worse over the past 2 years. Pain Worse over the past 2 weeks. States he has been drinking alcohol consist of margaritas versus shots to help with his anxiety. Denies history of alcohol abuse. Symptoms worse over the past 2 weeks. Does take Zoloft for his depression and PTSD. Does follow a psychiatrist at [facility]. Scheduled follow-up in 4 days. Patient contacted [facility] at [place] who stated that they have a bed but he needs to get medically cleared. He denies of any chest pain, cough, shortness of breath, nausea, vomiting, diarrhea, headache or chills. Denies of any suicidal homicidal thoughts. Denies hallucinations. Denies any drug use. History of cutting in the past. Patient has been admitted to [facility]. Allergies and Home Medications Allergies Coded Allergies: No Known Drug Allergies (Unverified , 05/26/21) Patient Home Medication List Home Medication List Reviewed: Yes Lorazepam (Ativan) 0.5 Mg Tablet, 0.5 MG PO TID PRN for ANXIETY Prescribed by: GENOVEVA ROCK on 09/30/221746 Review of Systems Constitutional: No chills, No diaphoresis, No malaise, No weakness EENTM: No ear pain, No blurred vision, No double vision, No hoarseness, No mouth pain, No mouth swelling Respiratory: No cough, No dyspnea on exertion Cardiovascular: No chest pain Gastrointestinal: No abdominal pain, No melena, No nausea, No vomiting Genitourinary: No decreased output, No discharge Musculoskeletal: No back pain, No joint pain, No joint swelling, No muscle pain, No muscle stiffness Skin: No change in color, No change in hair/nails Psychiatric/Neurological: Anxiety All Other Systems Reviewed Negative Unless Noted: Yes Past Crcrhoa-Nqqdjg-Sbeibc Hx Immunizations Up To Date First/Initial COVID19 Vaccinat: UNK Second COVID19 Vaccination Ravindra: UNK Third COVID19 Vaccination Date: UNK Past Medical History Surgery/Hospitalization HX: Tonsillectomy Surgeries: Yes Tonsillectomy Respiratory: Yes Asthma Cardiac: No Neurological: No Genitourinary: No Gastrointestinal: No Musculoskeletal: No Endocrine: No HEENT: No Cancer: No Psychosocial: Yes (Admissions for suicidal ideation, polysubstance abuse, self cutting) Schizophrenia Family Medical History No Pertinent Family Hx Physical Exam Vital Signs - First Documented 09/30/22 14:53 Temp 36.1 Pulse 85 B/P (MAP) 145/90 (108) Pulse Ox 96 O2 Delivery Room Air Capillary Refill : Height, Weight, BMI Height: '" Weight: lbs. oz. 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, no motor/sensory deficits, alert, normal mood/affect, oriented x 3 Appearance/Memory: appropriate appearance Behavior/Eye Contact: cooperative, good eye contact Thoughts/Hallucinations: normal thought pattern, no apparent hallucination, auditory hallucinations Skin: normal color, warm/dry Progress/Results/Core Measures Results/Orders Lab Results Laboratory Tests Test 09/30/22 15:00 09/30/22 15:20 09/30/22 15:23 Range/Units Urine Color YELLOW Urine Clarity CLOUDY Urine pH 6.5 5-9 Urine Specific [place] 1.015 L 1.016-1.022 Urine Protein NEGATIVE NEGATIVE Urine Glucose (UA) NEGATIVE NEGATIVE Urine Ketones NEGATIVE NEGATIVE Urine Nitrite NEGATIVE NEGATIVE Urine Bilirubin NEGATIVE NEGATIVE Urine Urobilinogen 0.2 < = 1.0 MG/DL Urine Leukocyte Esterase NEGATIVE NEGATIVE Urine RBC (Auto) NEGATIVE NEGATIVE Urine RBC NONE /HPF Urine WBC NONE /HPF Urine Crystals PRESENT H /LPF Urine Amorphous Sediment MOD CHANI URATES H /LPF Urine Bacteria FEW H /HPF Urine Casts NONE /LPF Urine Mucus NEGATIVE /LPF Urine Culture Indicated NO Urine Opiates Screen NEGATIVE NEGATIVE Urine Oxycodone Screen NEGATIVE NEGATIVE Urine Methadone Screen NEGATIVE NEGATIVE Urine Propoxyphene Screen NEGATIVE NEGATIVE Urine Barbiturates Screen NEGATIVE NEGATIVE Ur Tricyclic Antidepressants Screen NEGATIVE NEGATIVE Urine Phencyclidine Screen NEGATIVE NEGATIVE Urine Amphetamines Screen NEGATIVE NEGATIVE Urine Methamphetamines Screen NEGATIVE NEGATIVE Urine Benzodiazepines Screen NEGATIVE NEGATIVE Urine Cocaine Screen NEGATIVE NEGATIVE Urine Cannabinoids Screen NEGATIVE NEGATIVE White Blood Count 7.2 4.3-11.0 10^3/uL Red Blood Count 5.01 4.30-5.52 10^6/uL Hemoglobin 14.7 13.3-17.7 g/dL Hematocrit 43 40-54 % Mean Corpuscular Volume 85 80-99 fL Mean Corpuscular Hemoglobin 29 25-34 pg Mean Corpuscular Hemoglobin Concent 35 32-36 g/dL Red Cell Distribution Width 12.3 10.0-14.5 % Platelet Count 211 130-400 10^3/uL Mean Platelet Volume 8.8 L 9.0-12.2 fL Immature Granulocyte % (Auto) 0 % Neutrophils (%) (Auto) 61 42-75 % Lymphocytes (%) (Auto) 28 12-44 % Monocytes (%) (Auto) 8 0-12 % Eosinophils (%) (Auto) 3 0-10 % Basophils (%) (Auto) 0 0-10 % Neutrophils # (Auto) 4.4 1.8-7.8 10^3/uL Lymphocytes # (Auto) 2.0 1.0-4.0 10^3/uL Monocytes # (Auto) 0.6 0.0-1.0 10^3/uL Eosinophils # (Auto) 0.2 0.0-0.3 10^3/uL Basophils # (Auto) 0.0 0.0-0.1 10^3/uL Immature Granulocyte # (Auto) 0.0 0.0-0.1 10^3/uL Sodium Level 140 135-145 MMOL/L Potassium Level 3.5 L 3.6-5.0 MMOL/L Chloride Level 103 98-107 MMOL/L Carbon Dioxide Level 25 21-32 MMOL/L Anion Gap 12 5-14 MMOL/L Blood Urea Nitrogen 10 7-18 MG/DL Creatinine 0.76 0.60-1.30 MG/DL Estimat Glomerular Filtration Rate 130 BUN/Creatinine Ratio 13 Glucose Level 116 H 70-105 MG/DL Calcium Level 9.4 8.5-10.1 MG/DL Corrected Calcium 9.1 8.5-10.1 MG/DL Total Bilirubin 0.7 0.1-1.0 MG/DL Aspartate Amino Transf (AST/SGOT) 23 5-34 U/L Alanine Aminotransferase (ALT/SGPT) 30 0-55 U/L Alkaline Phosphatase 91 40-136 U/L Total Protein 7.1 6.4-8.2 GM/DL Albumin 4.4 3.2-4.5 GM/DL Salicylates Level < 5.0 L 5.0-20.0 MG/DL Acetaminophen Level < 10 L 10-30 UG/ML Serum Alcohol < 10 <10 MG/DL Influenza Type A (RT-PCR) Not Detected Not Detecte Influenza Type B (RT-PCR) Not Detected Not Detecte SARS-CoV-2 RNA (RT-PCR) Not Detected Not Detecte My Orders Orders - YANELY PALMER Ua Culture If Indicated (09/30/22 14:59) Cbc With Automated Diff (09/30/22 14:59) Comprehensive Metabolic Panel (09/30/22 14:59) Alcohol (09/30/22 14:59) Drug Screen Stat (Urine) (09/30/22 14:59) Acetaminophen (09/30/22 14:59) Salicylate (09/30/22 14:59) Ekg Tracing (09/30/22 14:59) Covid 19 Inhouse Test (09/30/22 14:59) Influenza A And B By Pcr (09/30/22 14:59) Lorazepam Tablet (Ativan Tablet) (09/30/22 15:32) Vital Signs/I&O 09/30/22 09/30/22 14:53 17:55 Temp 36.1 Pulse 85 73 B/P (MAP) 145/90 (108) 143/80 Pulse Ox 96 98 O2 Delivery Room Air Room Air Comment Sinus rhythm with sinus arrhythmia, 73 bpm, QRS duration 93 MS, QTc 380 MS. Departure Communication (PCP) Reviewed previous ER visits, H&P, lab testing. History of schizophrenia, anxiety, depression. Currently on Zoloft. Currently being managed by [facility] and his primary care physician. States the Zoloft is not helping. No active hallucinations. He is requesting change in medication for his anxiety. Anxiety over the past few years worse over the past 2 weeks. Patient alert and orient x4. GCS 15. Denies of any suicidal or homicidal thoughts. Patient was admitted back in May and June at [facility] [place]. He did contact them today and was recommended to go to the ER to get medically cleared. Recommended general lab work. Psych panel. Patient agreed. Patient EKG without evidence of ST elevation or depression or arrhythmia. Gene ralized lab work unremarkable. Patient is medically cleared. Contacted [facility] to talk to the [facility]. Patient did receive 1 mg of Ativan for his anxiety. Patient states he was feeling much better. He states he has appointment in 3 days. Patient is currently voluntary but states he wanted to go home and not wait any longer. Patient was requesting a few days worth of Ativan until he can see his appointment. Had a lengthy conversation with patient. Did offer psych evaluation here. Patient refused. There is no evidence of hallucinations. No suicidal or homicidal thoughts. He states he feels safe to go home he was just wanting something for his anxiety. He states he has been drinking alcohol intermittently to help with anxiety. Discussed I will provide a few days but do not drink alcohol with the medication. This is not a fix for his anxiety and that he needs to follow-up with his psychiatrist and primary care physician for further evaluation for medication. Did suggest ways to cope with anxiety. 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 If any worsening symptoms return back to ED for further evaluation. Patient lab work unremarkable. Impression Primary Impression: Anxiety Disposition: 01 HOME, SELF-CARE Condition: Stable Departure-Patient Inst. Decision time for Depature: 17:45 Referrals: ROMELIA BEAN APRN (PCP) Primary Care Physician [facility] (Family) Primary Care Physician Patient Instructions: Anxiety, Adult (DC) Add. Discharge Instructions: Need to follow-up with behavioral health and your provider for further evaluation. If any worsening symptoms return back to ED All discharge instructions reviewed with patient and/or family. Voiced understanding. Scripts Lorazepam (Ativan) 0.5 Mg Tablet 0.5 MG PO TID PRN for ANXIETY, #6 TAB Prov: YANELY PALMER 09/30/22 YANELY PALMER Sep 30, 2022 15:09
[2022-09-30 15:20] LABS: BACTERIA,URINE FEW /HPF
[2022-09-30 15:21] LABS: AMORPHOUS SEDIMENT,UR MOD AMOR URATES /LPF
[2022-09-30 15:29] LABS: AMPHETAMINE SCREEN, URINE NEGATIVE (NEGATIVE); BARBITURATE SCREEN URINE NEGATIVE (NEGATIVE); BENZODIAZEPINES SCREEN URINE NEGATIVE (NEGATIVE); CANNABINOID SCREEN, URINE NEGATIVE (NEGATIVE); COCAINE SCREEN URINE NEGATIVE (NEGATIVE); METHADONE STAT NEGATIVE (NEGATIVE); OPIATE SCREEN URINE NEGATIVE (NEGATIVE); OXYCODONE STAT NEGATIVE (NEGATIVE); PROPOXYPHENE STAT NEGATIVE (NEGATIVE); TRICYCLIC ANTIDEPRESSANTS SCRE NEGATIVE (NEGATIVE)
[2022-09-30] MEDS ORDERED: LORazepam 0.5 MG (ATIVAN) TABLET PO STA (15:32)
[2022-09-30 15:40] LABS: BASOPHILS % (AUTO) 0 % (0-10); EOSINOPHILS # (AUTO) 0.2 10^3/uL (0.0-0.3); EOSINOPHILS % (AUTO) 3 % (0-10); HEMATOCRIT 43 % (40-54); HEMOGLOBIN 14.7 g/dL (13.3-17.7); LYMPHOCYTES % (AUTO) 28 % (12-44); MEAN CORPUSCULAR HEMOGLOBIN 29 pg (25-34); MEAN CORPUSCULAR HGB CONC 35 g/dL (32-36); MEAN CORPUSCULAR VOLUME 85 fL (80-99); MEAN PLATELET VOLUME 8.8 fL (9.0-12.2); MONOCYTES # (AUTO) 0.6 10^3/uL (0.0-1.0); MONOCYTES % (AUTO) 8 % (0-12); NEUTROPHILS # (AUTO) 4.4 10^3/uL (1.8-7.8); NEUTROPHILS % (AUTO) 61 % (42-75); PLATELET COUNT 211 10^3/uL (130-400); WHITE BLOOD COUNT 7.2 10^3/uL (4.3-11.0)
[2022-09-30 15:50] LABS: ALBUMIN 4.4 GM/DL (3.2-4.5); CHLORIDE 103 MMOL/L (98-107); POTASSIUM 3.5 MMOL/L (3.6-5.0); SODIUM 140 MMOL/L (135-145)
[2022-09-30 15:51] LABS: CALCIUM 9.4 MG/DL (8.5-10.1)
[2022-09-30 15:53] LABS: GLUCOSE 116 MG/DL (70-105); TOTAL PROTEIN 7.1 GM/DL (6.4-8.2)
[2022-09-30 15:54] LABS: BILIRUBIN,TOTAL 0.7 MG/DL (0.1-1.0); CARBON DIOXIDE 25 MMOL/L (21-32)
[2022-09-30 15:56] LABS: ALKALINE PHOSPHATASE 91 U/L (40-136); CREATININE SERUM 0.76 MG/DL (0.60-1.30); GFR ESTIMATED 130
[2022-09-30 15:58] LABS: BUN/CREATININE RATIO 13
[2022-09-30 15:59] LABS: ALANINE AMINOTRANSFERASE 30 U/L (0-55); SALICYLATE < 5.0 MG/DL (5.0-20.0)
[2022-09-30 16:05] LABS: ACETAMINOPHEN < 10 UG/ML (10-30)
[2022-09-30] MEDS ORDERED: LORA-404 PO (17:46)
[2022-09-30 17:55] VITALS: BP 143/80
== END 2022-09-30 17:55 | disposition home or self-care (01) ==
LOC: EDUNIT# 14:49 → ER 14:51
DX: F41.9 Anxiety disorder, unspecified (principal); F32.A Depression, unspecified; F43.10 Post-traumatic stress disorder, unspecified; Z79.899 Other long term (current) drug therapy; Z20.822 Contact with and (suspected) exposure to COVID-19
CPT/HCPCS: 80053; 80306; 81000; 85025; 87636; 93005; 99283; G0480 ×3; 36415; 80320; 80329

== ENCOUNTER 2022-10-08 01:25 | Emergency (ER) | payer MEDICAID ==
[~2022-10-08] VITALS: Ht 182 cm; Wt 113.0 kg
[~2022-10-08 01:25] MED LIST changes: +LORA-404 PO; -RT-ALBUTEROL SULF 2.5 MG/3 ML PRE-MIX VIAL INH ONE
--- NOTE | 2022-10-08 01:32 | ED Psychosocial ---
General Stated Complaint: MENTAL ILLNESS;SCHIZOPHRENIC Source: patient History of Present Illness Date Seen by Provider: Oct 08, 2022 Time Seen by Provider: 01:30 Initial Comments PT ARRIVES VIA POV FROM HOME--MOM BROUGHT HIM HERE PT STATES HE IS SUICIDAL AND HOMICIDAL, SYMPTOMS BEGAN TODAY HE DOES NOT HAVE ANY PLANS TO HARM HIMSELF OR ANY ONE ELSE HE STATES HE WANTS TO KILL HIS FATHER AND HIS BROTHER, AND HIMSELF PT IS TANGENTIAL IN THOUGHTS, STATING " I THINS GOD IS CALLING ME TO BE A PROPHET" THEN DIGRESSES ABOUT FAMILY ISSUES--STATES "JUST THINGS ARE COMING TO ME NOW" " BECAUSE OF THINGS THAT HAVE JUST COME UP FROM THE PAST" --TALKS ABOUT HIS BROTHER TELLING HIM THAT DAD WANTED TO HAVE SEX WITH HIS SISTER--GIVES MUCH CONVOLUTED INFORMATION, AND DIFFICULT TO DETERMINE TIME FRAMES. HE IS HAVING MORAVIAN FIXATION AT THIS TIME, REPEATING SEVERAL TIMES THAT HE THINKS GOD IS CALLING HIM TO BE A PROPHET. HE BRINGS MORAVIAN BOOKS WITH HIM PT STATES HE HAS HAD LONGSTANDING MENTAL HEALTH ISSUES SINCE THE AGE OF 12. PT HAS HAD MULTIPLE PSYCH ADMITS, LAST ADMIT WAS 3-4 MONTHS AGO AT [facility] IN [place] HIS ONLY MEDICATION IS ZOLOFT. HE GOES TO [facility] FOR MENTAL HEALTH. PT HAS HAD 9 VISITS HERE SINCE HIS FIRST VISIT HERE IN 05/2021--ALL FOR PSYCH COMPLAINTS/SUICIDAL IDEATIONS--HE REPORTEDLY HAD JUST MOVED HERE FROM [place] 2 WEEKS BEFORE HIS FIRST VISIT HERE, BUT HAD ALREADY BEEN ADMITTED TO [facility] JUST PRIOR TO HIS FIRST VISIT HERE. HE ADMITS TO VAPING NICOTINE, THC USE, OCCASIONAL ETOH USE--HAD "A LITTLE BIT" TONIGHT TO DRINK PCP: [facility] Allergies and Home Medications Allergies Coded Allergies: No Known Drug Allergies (Unverified , 05/26/21) Patient Home Medication List Home Medication List Reviewed: Yes Lorazepam (Ativan) 0.5 Mg Tablet, 0.5 MG PO TID PRN for ANXIETY Prescribed by: GENOVEVA ROCK on 09/30/22 1978 Review of Systems Constitutional: no symptoms reported EENTM: no symptoms reported Respiratory: no symptoms reported Cardiovascular: no symptoms reported Gastrointestinal: no symptoms reported Genitourinary: no symptoms reported Musculoskeletal: no symptoms reported Skin: no symptoms reported Psychiatric/Neurological: See HPI Past Ncbztch-Aoggpt-Ywluyt Hx Patient Social History Tobacco Use?: No Use of E-Cig and/or Vaping dev: Yes E-Cig or Vaping type used: Nicotine Substance use?: Yes Substance type: Marijuana Alcohol Use?: Yes Alcohol Frequency: Once in a while Immunizations Up To Date First/Initial COVID19 Vaccinat: UNK Second COVID19 Vaccination Ravindra: UNK Third COVID19 Vaccination Date: UNK Past Medical History Surgery/Hospitalization HX: Tonsillectomy Surgeries: Yes Tonsillectomy Respiratory: Yes Asthma Cardiac: No Neurological: No Genitourinary: No Gastrointestinal: No Musculoskeletal: No Endocrine: No HEENT: No Cancer: No Psychosocial: Yes (Admissions for suicidal ideation, polysubstance abuse, self cutting) Anxiety, Schizophrenia, Depression Family Medical History No Pertinent Family Hx Physical Exam Vital Signs - First Documented 10/08/22 01:35 Temp 37.2 Pulse 93 Resp 20 B/P (MAP) 154/109 (124) Pulse Ox 96 O2 Delivery Room Air Capillary Refill : Height, Weight, BMI Height: '" Weight: lbs. oz. kg; 34.00 BMI Method: General Appearance: WD/WN, no apparent distress, other (DIRTY, UNKEMPT. 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 NO EVIDENCE OF RECENT CUTTING. ) Progress/Results/Core Measures Results/Orders Lab Results Laboratory Tests Test 10/08/22 01:44 10/08/22 01:46 Range/Units White Blood Count 6.4 4.3-11.0 10^3/uL Red Blood Count 5.33 4.30-5.52 10^6/uL Hemoglobin 15.4 13.3-17.7 g/dL Hematocrit 45 40-54 % Mean Corpuscular Volume 84 80-99 fL Mean Corpuscular Hemoglobin 29 25-34 pg Mean Corpuscular Hemoglobin Concent 34 32-36 g/dL Red Cell Distribution Width 12.3 10.0-14.5 % Platelet Count 211 130-400 10^3/uL Mean Platelet Volume 8.7 L 9.0-12.2 fL Immature Granulocyte % (Auto) 0 % Neutrophils (%) (Auto) 56 42-75 % Lymphocytes (%) (Auto) 32 12-44 % Monocytes (%) (Auto) 9 0-12 % Eosinophils (%) (Auto) 3 0-10 % Basophils (%) (Auto) 1 0-10 % Neutrophils # (Auto) 3.6 1.8-7.8 10^3/uL Lymphocytes # (Auto) 2.0 1.0-4.0 10^3/uL Monocytes # (Auto) 0.6 0.0-1.0 10^3/uL Eosinophils # (Auto) 0.2 0.0-0.3 10^3/uL Basophils # (Auto) 0.1 0.0-0.1 10^3/uL Immature Granulocyte # (Auto) 0.0 0.0-0.1 10^3/uL Sodium Level 140 135-145 MMOL/L Potassium Level 3.6 3.6-5.0 MMOL/L Chloride Level 103 98-107 MMOL/L Carbon Dioxide Level 23 21-32 MMOL/L Anion Gap 14 5-14 MMOL/L Blood Urea Nitrogen 7 7-18 MG/DL Creatinine 0.77 0.60-1.30 MG/DL Estimat Glomerular Filtration Rate 130 BUN/Creatinine Ratio 9 Glucose Level 111 H 70-105 MG/DL Calcium Level 10.1 8.5-10.1 MG/DL Corrected Calcium 8.5-10.1 MG/DL Total Bilirubin 0.7 0.1-1.0 MG/DL Aspartate Amino Transf (AST/SGOT) 26 5-34 U/L Alanine Aminotransferase (ALT/SGPT) 35 0-55 U/L Alkaline Phosphatase 89 40-136 U/L Total Protein 7.8 6.4-8.2 GM/DL Albumin 4.7 H 3.2-4.5 GM/DL Salicylates Level < 5.0 L 5.0-20.0 MG/DL Acetaminophen Level < 10 L 10-30 UG/ML Serum Alcohol 21 H <10 MG/DL Urine Color YELLOW Urine Clarity CLEAR Urine pH 5.5 5-9 Urine Specific [place] 1.025 H 1.016-1.022 Urine Protein NEGATIVE NEGATIVE Urine Glucose (UA) NEGATIVE NEGATIVE Urine Ketones NEGATIVE NEGATIVE Urine Nitrite NEGATIVE NEGATIVE Urine Bilirubin NEGATIVE NEGATIVE Urine Urobilinogen 0.2 < = 1.0 MG/DL Urine Leukocyte Esterase NEGATIVE NEGATIVE Urine RBC (Auto) NEGATIVE NEGATIVE Urine RBC NONE /HPF Urine WBC NONE /HPF Urine Crystals NONE /LPF Urine Bacteria NEGATIVE /HPF Urine Casts NONE /LPF Urine Mucus NEGATIVE /LPF Urine Culture Indicated NO Urine Opiates Screen NEGATIVE NEGATIVE Urine Oxycodone Screen NEGATIVE NEGATIVE Urine Methadone Screen NEGATIVE NEGATIVE Urine Propoxyphene Screen NEGATIVE NEGATIVE Urine Barbiturates Screen NEGATIVE NEGATIVE Ur Tricyclic Antidepressants Screen NEGATIVE NEGATIVE Urine Phencyclidine Screen NEGATIVE NEGATIVE Urine Amphetamines Screen NEGATIVE NEGATIVE Urine Methamphetamines Screen NEGATIVE NEGATIVE Urine Benzodiazepines Screen NEGATIVE NEGATIVE Urine Cocaine Screen NEGATIVE NEGATIVE Urine Cannabinoids Screen NEGATIVE NEGATIVE My Orders Orders - CAN PENALOZA DO Urinalysis (10/08/22 01:30) Drug Screen Stat (Urine) (10/08/22 01:30) Cbc With Automated Diff (10/08/22:30) Comprehensive Metabolic Panel (10/08/22 01:30) Alcohol (10/08/22 01:30) Acetaminophen (10/08/22 01:30) Salicylate (10/08/22 01:30) Ekg Tracing (10/08/22 01:30) Vital Signs/I&O Progress Progress Note : Progress Note PLACED IN SECURE ROOM, PLACED IN A GOWN, AND BELONGINGS SECURED. SUICIDE RISK STRATIFICATION FORM COMPLETED. PT IS LOW RISK AT THIS POINT, HE DOES NOT HAVE ANY PLAN. MENTAL HEALTH SCREEN TESTS ORDERED VITALS ARE STABLE LABS ARE UNREMARKABLE UDS IS NEG ETOH 0555--PT NOW STATES "I REALLY DON'T WANT TO HURT MYSELF OR ANYONE ELSE, I JUST WANT TO GET SOME THERAPY" HE STATES HE HAS NOT SEEN A THERAPIST "IN 2 YEARS" ,THEN STATES THAT HE HAS BEEN SEEING SOMEONE AT [facility], AND THAT HE SAW THE PSYCHIATRIST "4 DAYS AGO" BUT STATES "I WASN'T HAVING THESE THOUGHTS THEN" THEN STATES HE HAS AN APPOINTMENT WITH A THERAPIST THIS WEEK IN [place] [facility] [address]--PT HAS BEEN CLEARED MEDICALLY. MENTAL HEALTH IS NOW BEING CONTACTED TO DO SCREENING. 0530--MENTAL HEALTH SCREEN IS IN PROCESS AT THIS TIME 0545--HAVE DISCUSSED WITH SCREENER, SHE HAS ALSO TALKED WITH PT'S MOTHER. WILL BE SENDING HOME WITH A SAFETY PLAN, AND PT WILL BE GOING HOME WITH MOM. SHE HAS VERIFIED THAT PT'S FATHER AND BROTHER LIVE ON THE [facility] AND IS NOT FEASABLE AT THIS TIME FOR PT TO HARM THEM HIMSELF. Initial ECG Impression Date: Oct 08, 2022 Initial ECG Impression Time: 01:52 Initial ECG Rate: 84 Initial ECG Rhythm: Normal Sinus Initial ECG Intervals: Normal Initial ECG Comparisson: Unchanged Comment INTERPRETED BY ME Departure Impression Primary Impression: Passive suicidal ideations Additional Impression: PASSIVE HOMICIDAL IDEATIONS Disposition: 01 HOME, SELF-CARE Condition: Stable Departure-Patient Inst. Decision time for Depature: 05:50 Referrals: ROMELIA BEAN APRN (PCP) Primary Care Physician [facility] (Family) Primary Care Physician Patient Instructions: OUTPT MENTAL HEALTH SERVICES, Suicide Prevention Add. Discharge Instructions: FOLLOW UP MENTAL HEALTH ARRANGED IN SAFETY PLAN RETURN TO ER IF SYMPTOMS WORSEN CAN PENALOZA DO Oct 08, 2022 01:32
[2022-10-08 01:35] VITALS: BP 154/109
[2022-10-08 01:51] LABS: BASOPHILS # (AUTO) 0.1 10^3/uL (0.0-0.1); BASOPHILS % (AUTO) 1 % (0-10); EOSINOPHILS # (AUTO) 0.2 10^3/uL (0.0-0.3); EOSINOPHILS % (AUTO) 3 % (0-10); HEMATOCRIT 45 % (40-54); HEMOGLOBIN 15.4 g/dL (13.3-17.7); LYMPHOCYTES % (AUTO) 32 % (12-44); MEAN CORPUSCULAR HEMOGLOBIN 29 pg (25-34); MEAN CORPUSCULAR HGB CONC 34 g/dL (32-36); MEAN CORPUSCULAR VOLUME 84 fL (80-99); MEAN PLATELET VOLUME 8.7 fL (9.0-12.2); MONOCYTES # (AUTO) 0.6 10^3/uL (0.0-1.0); MONOCYTES % (AUTO) 9 % (0-12); NEUTROPHILS # (AUTO) 3.6 10^3/uL (1.8-7.8); NEUTROPHILS % (AUTO) 56 % (42-75); PLATELET COUNT 211 10^3/uL (130-400); WHITE BLOOD COUNT 6.4 10^3/uL (4.3-11.0)
[2022-10-08 02:01] LABS: ALBUMIN 4.7 GM/DL (3.2-4.5); CHLORIDE 103 MMOL/L (98-107); POTASSIUM 3.6 MMOL/L (3.6-5.0); SODIUM 140 MMOL/L (135-145)
[2022-10-08 02:02] LABS: CALCIUM 10.1 MG/DL (8.5-10.1)
[2022-10-08 02:03] LABS: GLUCOSE 111 MG/DL (70-105)
[2022-10-08 02:04] LABS: CARBON DIOXIDE 23 MMOL/L (21-32); TOTAL PROTEIN 7.8 GM/DL (6.4-8.2)
[2022-10-08 02:05] LABS: BILIRUBIN,TOTAL 0.7 MG/DL (0.1-1.0)
[2022-10-08 02:07] LABS: ALKALINE PHOSPHATASE 89 U/L (40-136); CREATININE SERUM 0.77 MG/DL (0.60-1.30); GFR ESTIMATED 130
[2022-10-08 02:08] LABS: BUN/CREATININE RATIO 9
[2022-10-08 02:10] LABS: ALANINE AMINOTRANSFERASE 35 U/L (0-55); SALICYLATE < 5.0 MG/DL (5.0-20.0)
[2022-10-08 02:12] LABS: ACETAMINOPHEN < 10 UG/ML (10-30)
[2022-10-08 02:16] LABS: BILIRUBIN,URINE NEGATIVE (NEGATIVE); CLARITY,URINE CLEAR; COLOR,URINE YELLOW; GLUCOSE, URINE (UA) NEGATIVE (NEGATIVE); KETONES,URINE NEGATIVE (NEGATIVE); LEUKOCYTE ESTERASE ,URINE NEGATIVE (NEGATIVE); NITRITE,URINE NEGATIVE (NEGATIVE); PH,URINE 5.5 (5-9); PROTEIN,URINE NEGATIVE (NEGATIVE)
[2022-10-08 02:27] LABS: BACTERIA,URINE NEGATIVE /HPF
[2022-10-08 02:29] LABS: AMPHETAMINE SCREEN, URINE NEGATIVE (NEGATIVE); BARBITURATE SCREEN URINE NEGATIVE (NEGATIVE); BENZODIAZEPINES SCREEN URINE NEGATIVE (NEGATIVE); CANNABINOID SCREEN, URINE NEGATIVE (NEGATIVE); COCAINE SCREEN URINE NEGATIVE (NEGATIVE); METHADONE STAT NEGATIVE (NEGATIVE); OPIATE SCREEN URINE NEGATIVE (NEGATIVE); OXYCODONE STAT NEGATIVE (NEGATIVE); PROPOXYPHENE STAT NEGATIVE (NEGATIVE); TRICYCLIC ANTIDEPRESSANTS SCRE NEGATIVE (NEGATIVE)
== END 2022-10-08 06:07 | disposition home or self-care (01) ==
LOC: EDUNIT# 01:25 → ER 01:27
DX: R45.851 Suicidal ideations (principal); R45.850 Homicidal ideations; F17.290 Nicotine dependence, other tobacco product, uncomplicated; Z79.899 Other long term (current) drug therapy; Z28.310 Unvaccinated for COVID-19
CPT/HCPCS: 80053; 80306; 81000; 85025; 93005; 99283; G0480 ×3; 36415; 80320; 80329

== ENCOUNTER 2022-10-31 18:25 | Emergency (ER) | payer MEDICAID ==
[~2022-10-31] VITALS: Ht 172 cm; Wt 102.0 kg
--- NOTE | 2022-10-31 18:38 | ED General ---
General Chief Complaint: General Problems/Pain Stated Complaint: GENERAL Source of Information: Patient Exam Limitations: No Limitations (YANELY PALMER) History of Present Illness Date Seen by Provider: Oct 31, 2022 Time Seen by Provider: 18:35 Initial Comments Patient is a 22-year-old male who presents ED by EMS for multiple complaints. He states over the past 1 to 2 months he has been having intermittent chest tightness shortness of breath is intermittent. Some days are worse than others. Reports tingling throughout his body that is intermittent and typically as sociated with the chest tightness. He states his symptoms seem to be worse this morning. Patient was seen at [facility] yesterday diagnosed with UTI took a dose of Macrobid this morning. Patient reports some burning with urination but denies of any penile discharge. States he has been having intermittent pain in his testicles for the past month. States he feels tingling in his testicles as well. Denies any testicle or swelling or redness. Also reports bilateral back pain for the past 1 to 2 months. This pain is intermittent and does not radiate. Denies of any injury. Denies of any bowel or urine cons or saddle paresthesia. Patient is concern for sepsis and a blood infection. Does have a history of anxiety and does take medication for. Denies of any known cardiac history. No family history of sudden cardiac . Denies headache, dizziness, visual changes, unilateral muscle weakness, cough or sensory changes, abdominal pain. Patient does report episode of diarrhea today but no vomiting. Denies any blood or mucousy stools (YANELY PALMER) Allergies and Home Medications Allergies Coded Allergies: No Known Drug Allergies (Unverified , 05/26/21) Patient Home Medication List Home Medication List Reviewed: Yes (YANELY PALMER) Lorazepam (Ativan) 0.5 Mg Tablet, 0.5 MG PO TID PRN for ANXIETY Prescribed by: GENOVEVA ROCK on 09/30/22 5709 Review of Systems Review of Systems Constitutional: No chills, No diaphoresis, No fever, No malaise, No weakness EENTM: No ear pain, No blurred vision, No mouth pain, No mouth swelling, No throat pain Respiratory: No cough; short of breath Cardiovascular: chest pain Gastrointestinal: No abdominal pain; diarrhea; No nausea, No vomiting Genitourinary: No dysuria, No frequency; pain Musculoskeletal: No back pain, No joint pain (YANELY PALMER) All Other Systems Reviewed Negative Unless Noted: Yes (YANELY PALMER) Past Orbyavo-Uciqbj-Judumx Hx Immunizations Up To Date First/Initial COVID19 Vaccinat: UNK Second COVID19 Vaccination Ravindra: UNK Third COVID19 Vaccination Date: UNK (YANELY PALMER) Past Medical History Surgery/Hospitalization HX: Tonsillectomy Surgeries: Yes Tonsillectomy Respiratory: Yes Asthma Cardiac: No Neurological: No Genitourinary: No Gastrointestinal: No Musculoskeletal: No Endocrine: No HEENT: No Cancer: No Psychosocial: Yes (Admissions for suicidal ideation, polysubstance abuse, self cutting) Anxiety, Schizophrenia, Depression (YANELY PALMER) Family Medical History No Pertinent Family Hx (YANELY PALMER) Physical Exam Vital Signs Vital Signs - First Documented 10/31/22 10/31/22 18:25 19:38 Temp 36.6 Pulse 93 Resp 12 B/P (MAP) 142/92 (109) Pulse Ox 96 O2 Delivery Room Air (LESIA BREWER MD) Vital Signs Capillary Refill : (YANELY PALMER) Height, Weight, BMI Height: '" Weight: lbs. oz. kg; 34.00 BMI Method: General Appearance: No Apparent Distress, WD/WN Eyes: Bilateral Eye Normal Inspection, Bilateral Eye PERRL, Bilateral Eye EOMI HEENT: PERRL/EOMI, TMs Normal, Normal ENT Inspection, Pharynx Normal Neck: Full Range of Motion, Normal Inspection, Non Tender, Supple Respiratory: Chest Non Tender, Lungs Clear, Normal Breath Sounds, No Accessory Muscle Use, No Respiratory Distress Cardiovascular: Regular Rate, Rhythm, No Edema, No Gallop, No JVD, No Murmur Gastrointestinal: Normal Bowel Sounds, No Organomegaly, No Pulsatile Mass, Non Tender Genital/Rectal: Other (refused exam) Extremity: Normal Capillary Refill, Normal Inspection, Normal Range of Motion, Non Tender Neurologic/Psychiatric: Alert, Oriented x3, No Motor/Sensory Deficits, Normal Mood/Affect, drug enforcement agent II-XII Norm as Tested Skin: Normal Color, Warm/Dry (YANELY PALMER) Progress/Results/Core Measures Suspected Sepsis SIRS Temperature: Pulse: Respiratory Rate: Laboratory Tests 10/31/22 18:52: White Blood Count 7.8 Blood Pressure / Mean: Laboratory Tests 10/31/22 18:52: Creatinine 0.79, Platelet Count 226, Total Bilirubin 0.7 (YANELY PALMER) Results/Orders Lab Results Laboratory Tests Test 10/31/22 18:52 Range/Units White Blood Count 7.8 4.3-11.0 10^3/uL Red Blood Count 5.12 4.30-5.52 10^6/uL Hemoglobin 15.0 13.3-17.7 g/dL Hematocrit 43 40-54 % Mean Corpuscular Volume 85 80-99 fL Mean Corpuscular Hemoglobin 29 25-34 pg Mean Corpuscular Hemoglobin Concent 35 32-36 g/dL Red Cell Distribution Width 12.8 10.0-14.5 % Platelet Count 226 130-400 10^3/uL Mean Platelet Volume 8.7 L 9.0-12.2 fL Immature Granulocyte % (Auto) 0 % Neutrophils (%) (Auto) 62 42-75 % Lymphocytes (%) (Auto) 24 12-44 % Monocytes (%) (Auto) 10 0-12 % Eosinophils (%) (Auto) 3 0-10 % Basophils (%) (Auto) 0 0-10 % Neutrophils # (Auto) 4.8 1.8-7.8 10^3/uL Lymphocytes # (Auto) 1.9 1.0-4.0 10^3/uL Monocytes # (Auto) 0.8 0.0-1.0 10^3/uL Eosinophils # (Auto) 0.3 0.0-0.3 10^3/uL Basophils # (Auto) 0.0 0.0-0.1 10^3/uL Immature Granulocyte # (Auto) 0.0 0.0-0.1 10^3/uL Urine Color YELLOW Urine Clarity CLEAR Urine pH 6.0 5-9 Urine Specific [place] 1.015 L 1.016-1.022 Urine Protein 1+ H NEGATIVE Urine Glucose (UA) NEGATIVE NEGATIVE Urine Ketones NEGATIVE NEGATIVE Urine Nitrite NEGATIVE NEGATIVE Urine Bilirubin NEGATIVE NEGATIVE Urine Urobilinogen 0.2 < = 1.0 MG/DL Urine Leukocyte Esterase NEGATIVE NEGATIVE Urine RBC (Auto) NEGATIVE NEGATIVE Urine RBC NONE /HPF Urine WBC 0-2 /HPF Urine Squamous Epithelial Cells RARE /HPF Urine Crystals PRESENT H /LPF Urine Calcium Oxalate Crystals FEW H /LPF Urine Amorphous Sediment LARGE CHANI URATES H /LPF Urine Bacteria NEGATIVE /HPF Urine Casts PRESENT /LPF Urine Coarse Granular Casts 2-5 H /LPF Urine Mucus LARGE H /LPF Urine Culture Indicated NO Sodium Level 141 135-145 MMOL/L Potassium Level 3.7 3.6-5.0 MMOL/L Chloride Level 105 98-107 MMOL/L Carbon Dioxide Level 26 21-32 MMOL/L Anion Gap 10 5-14 MMOL/L Blood Urea Nitrogen 11 7-18 MG/DL Creatinine 0.79 0.60-1.30 MG/DL Estimat Glomerular Filtration Rate 129 BUN/Creatinine Ratio 14 Glucose Level 119 H 70-105 MG/DL Calcium Level 9.5 8.5-10.1 MG/DL Corrected Calcium 8.5-10.1 MG/DL Magnesium Level 2.0 1.6-2.4 MG/DL Total Bilirubin 0.7 0.1-1.0 MG/DL Aspartate Amino Transf (AST/SGOT) 29 5-34 U/L Alanine Aminotransferase (ALT/SGPT) 47 0-55 U/L Alkaline Phosphatase 86 40-136 U/L Troponin I < 0.028 <0.028 NG/ML C-Reactive Protein High Sensitivity 0.34 0.00-0.50 MG/DL Total Protein 7.9 6.4-8.2 GM/DL Albumin 4.6 H 3.2-4.5 GM/DL (LESIA BREWER MD) Vital Signs/I&O 10/31/22 10/31/22 18:25 19:38 Temp 36.6 36.6 Pulse 93 95 Resp 12 16 B/P (MAP) 142/92 (109) 123/88 Pulse Ox 96 97 O2 Delivery Room Air (LESIA BREWER MD) Vital Signs/I&O Capillary Refill : (YANELY PALMER) ECG Comment Sinus rhythm, nonspecific T wave normality, 97 bpm, QRS duration 88 MS, QTc 384 MS (YANELY PALMER) Departure Communication (PCP) Patient was brought to ED by EMS for multiple complaints. Patient has a history of anxiety and depression. States he has been told he has schizophrenia but he denies hallucinations. Concern for a psych component to patient's symptoms. Symptoms over the past month. No known cardiac history. Denies any drug use or alcohol use. Currently on Macrobid secondary to UTI. Due to the chest pain and urinary symptoms added a urinalysis with STD cultures, EKG, chest x-ray, troponin, general lab work. No family history of sudden cardiac . EKG without evidence of ST elevation or depression. No ischemic changes. No evidence of arrhythmia. Patient is not tachycardic or hypoxic. Vital signs stable. CBC, CMP grossly unremarkable. Troponin negative. No evidence suggesting pericarditis, myocarditis or ACS. Chest x-ray negative for pneumo skip, pneumothorax, mediastinal widening. Low heart score. Low PERC score. Denies any drug use. No active hallucinations. Does not appear toxic or septic. Patient does not appear septic. All these things were discussed with patient. He is concern for infection in his blood. He is afebrile. Concern for a psych component. Currently on Zoloft. Provided outpatient follow-up with [facility]. If any worsening symptoms return back to ED for further evaluation. Follow-up your PCP in 2 days for reevaluation of your chest pain and complaints. Patient was reporting testicle pain. Refused testicle exam. States has been having pain in both testicles for the past 1 to 2 months but no pain at this time. Denies swelling or redness. also reports numbness in his testicles. Would not suspect a testicle torsion as he is having no current pain and length of symptoms. He states that pain is bilateral. Follow-up your PCP. (YANELY PALMER) Impression Primary Impression: Chest pain Disposition: 01 HOME, SELF-CARE Condition: Stable Departure-Patient Inst. Decision time for Depature: 19:33 (YANELY PALMER) Referrals: ROMELIA BEAN APRN (PCP) Primary Care Physician [facility] (Family) Primary Care Physician Patient Instructions: Chest Pain (DC) Add. Discharge Instructions: Recommend following up with your PCP in 2 to 3 days for reevaluation. All discharge instructions reviewed with patient and/or family. Voiced understanding. ATTENDING PHYSICIAN NOTE: I was physically present as attending physician in the emergency department during the care of this patient, but I was not directly involved in the decision making or delivery of care for this patient. (LESIA BREWER MD) YANELY PALMER Oct 31, 2022 18:38 LESIA BREWER MD Oct 31, 2022 21:26
[2022-10-31 19:03] LABS: BASOPHILS % (AUTO) 0 % (0-10); EOSINOPHILS # (AUTO) 0.3 10^3/uL (0.0-0.3); EOSINOPHILS % (AUTO) 3 % (0-10); HEMATOCRIT 43 % (40-54); LYMPHOCYTES # (AUTO) 1.9 10^3/uL (1.0-4.0); LYMPHOCYTES % (AUTO) 24 % (12-44); MEAN CORPUSCULAR HEMOGLOBIN 29 pg (25-34); MEAN CORPUSCULAR HGB CONC 35 g/dL (32-36); MEAN CORPUSCULAR VOLUME 85 fL (80-99); MEAN PLATELET VOLUME 8.7 fL (9.0-12.2); MONOCYTES # (AUTO) 0.8 10^3/uL (0.0-1.0); MONOCYTES % (AUTO) 10 % (0-12); NEUTROPHILS # (AUTO) 4.8 10^3/uL (1.8-7.8); NEUTROPHILS % (AUTO) 62 % (42-75); PLATELET COUNT 226 10^3/uL (130-400); WHITE BLOOD COUNT 7.8 10^3/uL (4.3-11.0)
[2022-10-31 19:17] LABS: ALBUMIN 4.6 GM/DL (3.2-4.5); AMORPHOUS SEDIMENT,UR LARGE AMOR URATES /LPF; BACTERIA,URINE NEGATIVE /HPF; BILIRUBIN,URINE NEGATIVE (NEGATIVE); CALCIUM OXALATE CRYSTALS,UR FEW /LPF; CLARITY,URINE CLEAR; COLOR,URINE YELLOW; GLUCOSE, URINE (UA) NEGATIVE (NEGATIVE); KETONES,URINE NEGATIVE (NEGATIVE); LEUKOCYTE ESTERASE ,URINE NEGATIVE (NEGATIVE); NITRITE,URINE NEGATIVE (NEGATIVE); PROTEIN,URINE 1+ (NEGATIVE); SQUAMOUS EPITHELIAL CELL,UR RARE /HPF; WBC,URINE 0-2 /HPF
[2022-10-31 19:18] LABS: CHLORIDE 105 MMOL/L (98-107); POTASSIUM 3.7 MMOL/L (3.6-5.0); SODIUM 141 MMOL/L (135-145)
[2022-10-31 19:19] LABS: CALCIUM 9.5 MG/DL (8.5-10.1)
[2022-10-31 19:20] LABS: GLUCOSE 119 MG/DL (70-105); TOTAL PROTEIN 7.9 GM/DL (6.4-8.2)
[2022-10-31 19:21] LABS: CARBON DIOXIDE 26 MMOL/L (21-32)
--- NOTE | 2022-10-31 19:21 | Diagnostic Imaging Report ---
EXAMINATION: Chest 1 view. HISTORY: Chest pain COMPARISON: None available. FINDINGS: The lungs are clear without edema or pneumonia. No pleural effusion or pneumothorax. Heart size is normal. IMPRESSION: Clear lungs. Dictated by: Dictated on workstation # [id number]
[2022-10-31 19:22] LABS: BILIRUBIN,TOTAL 0.7 MG/DL (0.1-1.0)
[2022-10-31 19:23] LABS: ALKALINE PHOSPHATASE 86 U/L (40-136)
[2022-10-31 19:24] LABS: CREATININE SERUM 0.79 MG/DL (0.60-1.30); GFR ESTIMATED 129
[2022-10-31 19:25] LABS: BUN/CREATININE RATIO 14
[2022-10-31 19:27] LABS: ALANINE AMINOTRANSFERASE 47 U/L (0-55)
[2022-10-31 19:38] VITALS: BP 123/88
== END 2022-10-31 19:39 | disposition home or self-care (01) ==
LOC: EDUNIT# 18:26 → ER 18:27
DX: R07.89 Other chest pain (principal); N39.0 Urinary tract infection, site not specified; F41.9 Anxiety disorder, unspecified; Z79.899 Other long term (current) drug therapy
CPT/HCPCS: 36415; 71045; 80053; 81000; 83735; 84484; 85025; 86141; 87491; 87591; 93005

== ENCOUNTER 2022-11-05 01:57 | Emergency (ER) | payer MEDICAID ==
[~2022-11-05] VITALS: Ht 172.7 cm; Wt 102.0 kg
[2022-11-05 02:06] VITALS: BP 130/86
--- NOTE | 2022-11-05 02:18 | ED General ---
General Stated Complaint: POSS PSYCH,COVID+ & E-COLI,SEEING SPIRITS Source of Information: Patient, Old Records History of Present Illness Date Seen by Provider: Nov 05, 2022 Time Seen by Provider: 02:07 Initial Comments PT WALKS INTO ER ON HIS OWN PT STATES HE HAS COVID--WAS DX 2 DAYS AGO AT [facility]. NO TREATMENT HE HAS HAD SYMPTOMS FOR 5 DAYS: -COUGH AND CONGESTION -RUNNY NOSE -HEADACHE -BODY ACHES HE HAS NOT CHECKED HIS TEMPERATURE BUT DOES NOT FEEL LIKE HE HAS HAD FEVER HE HAS TAKEN OVER THE COUNTER DAYQUIL FOR SYMPTOMS SYMPTOMS ARE NO DIFFERENT TONIGHT IN ANY WAY HE STATES HE IS HERE TONIGHT BECAUSE HIS MOM JUST KICKED HIM OUT OF THE HOUSE TONIGHT AND STATES HE WAS LAYING ON THE STREET AND COULDN'T SLEEP. SO HE CAME TO ER. HE NORMALLY TAKES CLONIDINE AND MELATONIN AT NIGHT TO SLEEP BUT DID NOT TAKE ANY TONIGHT, THEY ARE AT HIS MOM'S HOUSE. PCP: [facility] Allergies and Home Medications Allergies Coded Allergies: No Known Drug Allergies (Unverified , 05/26/21) Patient Home Medication List Home Medication List Reviewed: Yes Lorazepam (Ativan) 0.5 Mg Tablet, 0.5 MG PO TID PRN for ANXIETY Prescribed by: GENOVEVA ROCK on 09/30/22 1992 Review of Systems Review of Systems Constitutional: no symptoms reported EENTM: see HPI Respiratory: see HPI, cough Cardiovascular: no symptoms reported Gastrointestinal: no symptoms reported Genitourinary: no symptoms reported Musculoskeletal: see HPI (BODY ACHES) Skin: no symptoms reported Psychiatric/Neurological: See HPI, Headache Hematologic/Lymphatic: No Symptoms Reported Immunological/Allergic: no symptoms reported Past Zzmeafn-Mdrtxl-Bjcwyk Hx Patient Social History Tobacco Use?: No Use of E-Cig and/or Vaping dev: No Substance use?: Yes Substance type: Marijuana Additional substance use comme: HX OF POLYSUBSTANCE USE Alcohol Use?: No Immunizations Up To Date First/Initial COVID19 Vaccinat: UNK Second COVID19 Vaccination Ravindra: UNK Third COVID19 Vaccination Date: UNK Past Medical History Surgery/Hospitalization HX: Tonsillectomy, ASTHMA Surgeries: Yes Tonsillectomy Respiratory: Yes Asthma Cardiac: No Neurological: No Genitourinary: No Gastrointestinal: No Musculoskeletal: No Endocrine: No HEENT: No Cancer: No Psychosocial: Yes (Admissions for suicidal ideation, polysubstance abuse, self cutting) Anxiety, Schizophrenia, Depression Family Medical History No Pertinent Family Hx Physical Exam Vital Signs Vital Signs - First Documented 11/05/22 02:06 Temp 37.0 Pulse 91 Resp 20 B/P (MAP) 130/86 (101) Pulse Ox 97 O2 Delivery Room Air Capillary Refill : Height, Weight, BMI Height: '" Weight: lbs. oz. kg; 34.00 BMI Method: General Appearance: No Apparent Distress, WD/WN HEENT: PERRL/EOMI, Normal ENT Inspection, Pharynx Normal Neck: Normal Inspection Respiratory: Normal Breath Sounds, No Accessory Muscle Use, No Respiratory Distress Cardiovascular: Regular Rate, Rhythm, No Murmur Gastrointestinal: Non Tender, Soft Back: Normal Inspection Extremity: Normal Inspection Neurologic/Psychiatric: Alert, Oriented x3, No Motor/Sensory Deficits, low pressure kettle operator II- XII Norm as Tested Skin: Normal Color, Warm/Dry, Other (EXTENSIVE SCARRING TO BOTH ARMS FROM PRIOR SELF CUTTING--NO RECENT CUTS. ) Progress/Results/Core Measures Suspected Sepsis SIRS Temperature: Pulse: Respiratory Rate: Blood Pressure / Mean: Results/Orders Lab Results Laboratory Tests Test 11/05/22 02:11 Range/Units Influenza Type A (RT-PCR) Not Detected Not Detecte Influenza Type B (RT-PCR) Not Detected Not Detecte SARS-CoV-2 RNA (RT-PCR) Detected H Not Detecte My Orders Orders - CAN PENALOZA DO Covid 19 Inhouse Test (11/05/22 02:07) Influenza A And B By Pcr (11/05/22 02:07) Hydroxyzine Cap/Tab (Vistaril) (11/05/22 03:00) Hydroxyzine Cap/Tab (Vistaril) (11/05/22 02:50) Medications Given in ED Current Medications Medications Dose Ordered Sig/Radha Route Start Time Stop Time Status Last Admin Dose Admin Hydroxyzine Pamoate 50 mg ONCE ONCE PO 11/05/22 03:00 11/05/22 02:57 DC 11/05/22 02:50 50 MG Vital Signs/I&O 11/05/22 02:06 Temp 37.0 Pulse 91 Resp 20 B/P (MAP) 130/86 (101) Pulse Ox 97 O2 Delivery Room Air Capillary Refill : Progress Note : Progress Note PLACED IN ISOLATION ROOM PPE WORN COVID AND FLU TESTING DONE NO COUGH NO DYSPNEA NO HYPOXIA NO FEVER VITALS STABLE PT GIVEN VISTARIL FOR HIS COMPLAINT OF NOT BEING ABLE TO SLEEP PT WANTING TO SLEEP HERE IN ER, IN ROOM, BECAUSE HIS MOM KICKED HIM OUT TONIGHT. ADVISED HIM THAT HE COULD NOT STAY IN ER JUST BECAUSE HE WANTED SOMEWHERE TO SLEEP. HE STATES THAT IS WHY HE CAME HERE--SO HE COULD SLEEP. DISCUSSED ANTICIPATED COURSE, NEED FOR CONTINUED QUARANTINE, NEED FOR FOLLOW UP AND RETURN PRECAUTIONS REVIEWED PRIOR RECORDS, PT WITH A MULTITUDE OF ER VISITS SINCE HIS FIRST VISIT HERE 05/2021--HAD JUST MOVED HERE FROM [place] AT THAT TIME. Departure Impression Primary Impression: COVID-19 virus infection Disposition: HOME, SELF-CARE Condition: Stable Departure-Patient Inst. Decision time for Depature: 02:43 Referrals: ROMELIA BEAN APRN (PCP) Primary Care Physician [facility] (Family) Primary Care Physician Patient Instructions: COVID-19 ED Add. Discharge Instructions: LOTS OF CLEAR LIQUIDS TYLENOL 1 GRAM PLUS MOTRIN 800 MG 4 TIMES A DAY FOR PAIN OR FEVER CONTINUE OVER THE COUNTER MEDICATIONS FOR COUGH AND CONGESTION CONTINUE QUARANTINE FOR AND ADDITIONAL 5 DAYS FOLLOW UP WITH [facility] FOR FURTHER CARE CAN PENALOZA DO Nov 05, 2022 02:18
[2022-11-05] MEDS ORDERED: hydrOXYzine 25 MG CAPSULE ONE (02:50)
[2022-11-05] MEDS ORDERED: hydrOXYzine 25 MG CAPSULE PO ONE (03:00)
== END 2022-11-05 02:57 | disposition home or self-care (01) ==
LOC: EDUNIT# 01:57 → ER 02:01
DX: U07.1 COVID-19 (principal); R05.9 Cough, unspecified; R09.81 Nasal congestion; R09.89 Other specified symptoms and signs involving the circulatory and respiratory systems; R51.9 Headache, unspecified
CPT/HCPCS: 87636; 99283

== ENCOUNTER 2022-12-05 01:23 | Emergency (ER) | payer MEDICAID ==
[~2022-12-05] VITALS: Ht 172.7 cm; Wt 104.0 kg
[2022-12-05 01:42] LABS: BASOPHILS # (AUTO) 0.1 10^3/uL (0.0-0.1); BASOPHILS % (AUTO) 1 % (0-10); EOSINOPHILS # (AUTO) 0.4 10^3/uL (0.0-0.3); EOSINOPHILS % (AUTO) 5 % (0-10); HEMATOCRIT 43 % (40-54); HEMOGLOBIN 14.7 g/dL (13.3-17.7); LYMPHOCYTES # (AUTO) 2.2 10^3/uL (1.0-4.0); LYMPHOCYTES % (AUTO) 28 % (12-44); MEAN CORPUSCULAR HEMOGLOBIN 30 pg (25-34); MEAN CORPUSCULAR HGB CONC 34 g/dL (32-36); MEAN CORPUSCULAR VOLUME 86 fL (80-99); MEAN PLATELET VOLUME 8.8 fL (9.0-12.2); MONOCYTES # (AUTO) 0.6 10^3/uL (0.0-1.0); MONOCYTES % (AUTO) 8 % (0-12); NEUTROPHILS # (AUTO) 4.5 10^3/uL (1.8-7.8); NEUTROPHILS % (AUTO) 58 % (42-75); PLATELET COUNT 219 10^3/uL (130-400); WHITE BLOOD COUNT 7.8 10^3/uL (4.3-11.0)
--- NOTE | 2022-12-05 01:48 | ED General ---
General Chief Complaint: General Problems/Pain Stated Complaint: POSS MEDICATION REACTION Source of Information: Patient (EXTREMELY POOR, DIFFICULT, VAGUE HISTORIAN, DISCONNECTED SENTENCES/PHRASES; SLOW MENTATION) History of Present Illness Date Seen by Provider: Dec 05, 2022 Time Seen by Provider: 01:24 Initial Comments PT ARRIVES VIA EMS --WALKS IN ON HIS OWN Allergies and Home Medications Allergies Coded Allergies: No Known Drug Allergies (Unverified , 05/26/21) Patient Home Medication List Lorazepam (Ativan) 0.5 Mg Tablet, 0.5 MG PO TID PRN for ANXIETY Prescribed by: GENOVEVA ROCK on 09/30/22 1747 Past Rlpljnf-Zyqhoq-Mqdtmn Hx Immunizations Up To Date First/Initial COVID19 Vaccinat: UNK Second COVID19 Vaccination Ravindra: UNK Third COVID19 Vaccination Date: UNK Past Medical History Surgery/Hospitalization HX: Tonsillectomy, ASTHMA Surgeries: Yes Tonsillectomy Respiratory: Yes Asthma Cardiac: No Neurological: No Genitourinary: No Gastrointestinal: No Musculoskeletal: No Endocrine: No HEENT: No Cancer: No Psychosocial: Yes (Admissions for suicidal ideation, polysubstance abuse, self cutting) Anxiety, Schizophrenia, Depression Family Medical History No Pertinent Family Hx Physical Exam Vital Signs Capillary Refill : Height, Weight, BMI Height: '" Weight: lbs. oz. kg; 34.00 BMI Method: Progress/Results/Core Measures Suspected Sepsis SIRS Temperature: Pulse: Respiratory Rate: Laboratory Tests 12/05/22 01:35: White Blood Count 7.8 Blood Pressure / Mean: Laboratory Tests 12/05/22 01:35: Creatinine 0.79, Platelet Count 219, Total Bilirubin 1.1H Results/Orders Lab Results Laboratory Tests Test 12/05/22 01:25 12/05/22 01:35 Range/Units Urine Color YELLOW Urine Clarity CLEAR Urine pH 5.5 5-9 Urine Specific [place] 1.015 L 1.016-1.022 Urine Protein NEGATIVE NEGATIVE Urine Glucose (UA) NEGATIVE NEGATIVE Urine Ketones NEGATIVE NEGATIVE Urine Nitrite NEGATIVE NEGATIVE Urine Bilirubin NEGATIVE NEGATIVE Urine Urobilinogen 0.2 < = 1.0 MG/DL Urine Leukocyte Esterase NEGATIVE NEGATIVE Urine RBC (Auto) NEGATIVE NEGATIVE Urine RBC NONE /HPF Urine WBC NONE /HPF Urine Crystals NONE /LPF Urine Bacteria NEGATIVE /HPF Urine Casts NONE /LPF Urine Mucus NEGATIVE /LPF Urine Culture Indicated NO Urine Opiates Screen NEGATIVE NEGATIVE Urine Oxycodone Screen NEGATIVE NEGATIVE Urine Methadone Screen NEGATIVE NEGATIVE Urine Propoxyphene Screen NEGATIVE NEGATIVE Urine Barbiturates Screen NEGATIVE NEGATIVE Ur Tricyclic Antidepressants Screen NEGATIVE NEGATIVE Urine Phencyclidine Screen NEGATIVE NEGATIVE Urine Amphetamines Screen NEGATIVE NEGATIVE Urine Methamphetamines Screen NEGATIVE NEGATIVE Urine Benzodiazepines Screen POSITIVE H NEGATIVE Urine Cocaine Screen NEGATIVE NEGATIVE Urine Cannabinoids Screen NEGATIVE NEGATIVE White Blood Count 7.8 4.3-11.0 10^3/uL Red Blood Count 4.98 4.30-5.52 10^6/uL Hemoglobin 14.7 13.3-17.7 g/dL Hematocrit 43 40-54 % Mean Corpuscular Volume 86 80-99 fL Mean Corpuscular Hemoglobin 30 25-34 pg Mean Corpuscular Hemoglobin Concent 34 32-36 g/dL Red Cell Distribution Width 12.7 10.0-14.5 % Platelet Count 219 130-400 10^3/uL Mean Platelet Volume 8.8 L 9.0-12.2 fL Immature Granulocyte % (Auto) 0 % Neutrophils (%) (Auto) 58 42-75 % Lymphocytes (%) (Auto) 28 12-44 % Monocytes (%) (Auto) 8 0-12 % Eosinophils (%) (Auto) 5 0-10 % Basophils (%) (Auto) 1 0-10 % Neutrophils # (Auto) 4.5 1.8-7.8 10^3/uL Lymphocytes # (Auto) 2.2 1.0-4.0 10^3/uL Monocytes # (Auto) 0.6 0.0-1.0 10^3/uL Eosinophils # (Auto) 0.4 H 0.0-0.3 10^3/uL Basophils # (Auto) 0.1 0.0-0.1 10^3/uL Immature Granulocyte # (Auto) 0.0 0.0-0.1 10^3/uL Erythrocyte Sedimentation Rate 4 0-15 MM/HR Sodium Level 138 135-145 MMOL/L Potassium Level 3.8 3.6-5.0 MMOL/L Chloride Level 105 98-107 MMOL/L Carbon Dioxide Level 24 21-32 MMOL/L Anion Gap 9 5-14 MMOL/L Blood Urea Nitrogen 10 7-18 MG/DL Creatinine 0.79 0.60-1.30 MG/DL Estimat Glomerular Filtration Rate 129 BUN/Creatinine Ratio 13 Glucose Level 102 70-105 MG/DL Calcium Level 9.1 8.5-10.1 MG/DL Corrected Calcium 8.5-10.1 MG/DL Magnesium Level 2.1 1.6-2.4 MG/DL Total Bilirubin 1.1 H 0.1-1.0 MG/DL Aspartate Amino Transf (AST/SGOT) 19 5-34 U/L Alanine Aminotransferase (ALT/SGPT) 22 0-55 U/L Alkaline Phosphatase 84 40-136 U/L Total Creatine Kinase 151 30-200 U/L Creatine Kinase MB 1.5 <6.6 NG/ML Myoglobin 35.9 10.0-92.0 NG/ML C-Reactive Protein High Sensitivity 0.38 0.00-0.50 MG/DL B-Type Natriuretic Peptide < 10.0 <100.0 PG/ML Total Protein 7.2 6.4-8.2 GM/DL Albumin 4.6 H 3.2-4.5 GM/DL Serum Alcohol < 10 <10 MG/DL My Orders Orders - CAN PENALOZA DO Ed Iv/Invasive Line Start (12/05/22 01:25) Monitor-Rhythm Ecg Trace Only (12/05/22:25) Alcohol (12/05/22:25) Bnp Sly (12/05/22:25) Cbc With Automated Diff (12/05/22:25) Comprehensive Metabolic Panel (12/05/22:25) Creatine Kinase (12/05/22:25) Creatine Kinase Mb (12/05/22:25) Hs C Reactive Protein (12/05/22:25) Drug Screen Stat (Urine) (12/05/22:25) Magnesium (12/05/22:25) Ua Culture If Indicated (12/05/22:25) Erythrocyte Sedimentation Rate (12/05/22:25) Myoglobin Serum (12/05/22:25) Vital Signs/I&O Capillary Refill : Departure Impression Primary Impression: Anxiety Disposition: 01 HOME, SELF-CARE Condition: Stable Departure-Patient Inst. Decision time for Depature: 02:20 Referrals: ROMELIA BEAN APRN (PCP) Primary Care Physician [facility] (Family) Primary Care Physician Patient Instructions: Generalized Anxiety Disorder (DC) Add. Discharge Instructions: FINISH YOUR ANTIBIOTIC PRESCRIBED FOLLOW UP WITH YOUR PROVIDER AT [facility] THIS WEEK FOR FURTHER CARE All discharge instructions reviewed with patient and/or family. Voiced understanding. CAN PENALOZA DO Dec 05, 2022 01:48
[2022-12-05 01:54] LABS: AMPHETAMINE SCREEN, URINE NEGATIVE (NEGATIVE); BARBITURATE SCREEN URINE NEGATIVE (NEGATIVE); BENZODIAZEPINES SCREEN URINE POSITIVE (NEGATIVE); CANNABINOID SCREEN, URINE NEGATIVE (NEGATIVE); COCAINE SCREEN URINE NEGATIVE (NEGATIVE); METHADONE STAT NEGATIVE (NEGATIVE); OPIATE SCREEN URINE NEGATIVE (NEGATIVE); OXYCODONE STAT NEGATIVE (NEGATIVE); PROPOXYPHENE STAT NEGATIVE (NEGATIVE); TRICYCLIC ANTIDEPRESSANTS SCRE NEGATIVE (NEGATIVE)
[2022-12-05 01:55] LABS: BACTERIA,URINE NEGATIVE /HPF; BILIRUBIN,URINE NEGATIVE (NEGATIVE); CLARITY,URINE CLEAR; COLOR,URINE YELLOW; GLUCOSE, URINE (UA) NEGATIVE (NEGATIVE); KETONES,URINE NEGATIVE (NEGATIVE); LEUKOCYTE ESTERASE ,URINE NEGATIVE (NEGATIVE); NITRITE,URINE NEGATIVE (NEGATIVE); PH,URINE 5.5 (5-9); PROTEIN,URINE NEGATIVE (NEGATIVE)
[2022-12-05 02:02] LABS: ERYTHROCYTE SEDIMENTATION RATE 4 MM/HR (0-15)
[2022-12-05 02:08] LABS: ALANINE AMINOTRANSFERASE 22 U/L (0-55); ALBUMIN 4.6 GM/DL (3.2-4.5); ALKALINE PHOSPHATASE 84 U/L (40-136); BILIRUBIN,TOTAL 1.1 MG/DL (0.1-1.0); BUN/CREATININE RATIO 13; CALCIUM 9.1 MG/DL (8.5-10.1); CARBON DIOXIDE 24 MMOL/L (21-32); CHLORIDE 105 MMOL/L (98-107); CREATINE KINASE 151 U/L (30-200); CREATININE SERUM 0.79 MG/DL (0.60-1.30); GFR ESTIMATED 129; GLUCOSE 102 MG/DL (70-105); MAGNESIUM 2.1 MG/DL (1.6-2.4); POTASSIUM 3.8 MMOL/L (3.6-5.0); SODIUM 138 MMOL/L (135-145); TOTAL PROTEIN 7.2 GM/DL (6.4-8.2)
[2022-12-05 02:14] LABS: CREATINE KINASE MB 1.5 NG/ML (<6.6)
[2022-12-05 02:35] VITALS: BP 135/91
== END 2022-12-05 02:35 | disposition home or self-care (01) ==
LOC: EDUNIT# 01:23 → ER 01:25
DX: F41.9 Anxiety disorder, unspecified (principal); Z28.311 Partially vaccinated for COVID-19
CPT/HCPCS: 80053; 80306; 81000; 82550; 82553; 83735; 83874; 83880; 85025; 85652; 86141; 93041; 99284; G0480; 36415; 80320

== ENCOUNTER 2022-12-30 23:32 | Emergency (ER) | payer MEDICAID ==
[~2022-12-30] VITALS: Ht 172.7 cm; Wt 104.3 kg
[2022-12-30 23:35] VITALS: BP 131/91
--- NOTE | 2022-12-30 23:37 | ED Psychosocial ---
General Stated Complaint: NEEDS HELP REGULATING MEDS Source: patient (DIFFICULT HISTORIAN, SPEECH /THOUGHT PROCESSES ARE ERRATIC AND TANGENTIAL AND OFTEN NON-SENSICAL--THIS IS PT'S NORMAL BASELINE), EMS, old records History of Present Illness Date Seen by Provider: Dec 30, 2022 Time Seen by Provider: 23:34 Initial Comments PT ARRIVES VIA EMS, WAS PICKED UP AT [employer] [facility]. PT WALKS INTO ER ON HIS OWN PT WITH LONG HISTORY OF POLYSUBSTANCE ABUSE, AND PSYCHIATRIC ISSUES, INCLUDING SCHIZOPHRENIA AND SUICIDAL IDEATIONS AND YAZDANISM FIXATIONS IS HERE "WANTING HIS MEDICATIONS REGULATED" HE HAS BEEN "SELF MEDICATING" BY GETTING DRUGS OFF THE STREET--ATIVAN AND PROMETHAZINE. PT STATES HE WAS JUST ADMITTED TO [facility] IN [place] 2 WEEKS AGO HE HAS BEEN PRESCRIBED SEROQUEL, HYDROXYZINE, AND GABAPENTIN. HE CLAIMS HE HAS BEEN TAKING HIS MEDICATIONS--STATES HE OFTEN "DOUBLES UP" ON IT "TO CALM MY BRAIN DOWN" . HE CLAIMS HE HAS TAKEN HIS NORMAL DOSE OF MEDICATIONS TODAY. HE STATES HE ALSO HAS BEEN TAKING ATIVAN THAT HE HAS BEEN GETTING OFF THE STREET--HE HAS HAD "EITHER 2 OR 4 MG" OF ATIVAN TODAY HE STATES HE HAD A FOLLOW UP APPOINTMENT WITH [facility] LAST WEEK. HE DOES NOT STATE WHEN HIS NEXT APPOINTMENT IS WITH THEM HE STATES HE SMOKES 2 PPD, AND STATES THAT WHEN HE SMOKES CIGARETTES, IT "TRIGGERS HIS SCHIZOPHRENIA" HE IS WANTING HELP TO STOP SMOKING HE IS NOT VOICING ANY SUICIDAL OR HOMICIDAL THOUGHTS/GESTURES/ATTEMPTS TODAY PT HAD BEEN LIVING WITH HIS MOTHER UNTIL , STATES HE MOVED OUT AND IS NOW LIVING BY HIMSELF. PT WITH A MULTITUDE OF VISITS HERE FOR VARIOUS COMPLAINTS PCP: KIRBY-SHANIQUA PSYCH: [facility] Allergies and Home Medications Allergies Coded Allergies: No Known Drug Allergies (Unverified , 05/26/21) Patient Home Medication List Home Medication List Reviewed: Yes Lorazepam (Ativan) 0.5 Mg Tablet, 0.5 MG PO TID PRN for ANXIETY Prescribed by: GENOVEVA ROCK on 09/30/22 0998 Review of Systems Constitutional: no symptoms reported Respiratory: no symptoms reported Cardiovascular: no symptoms reported Gastrointestinal: no symptoms reported Genitourinary: no symptoms reported Musculoskeletal: no symptoms reported Skin: no symptoms reported Psychiatric/Neurological: See HPI Past Oaukhmf-Qareos-Ipvfyl Hx Patient Social History Tobacco Use?: Yes Tobacco type used: Cigarettes Smoking Status: Current Everyday Smoker Substance use?: Yes Substance type: Misuse of prescript meds, Marijuana Substance frequency: Daily Alcohol Use?: No Immunizations Up To Date First/Initial COVID19 Vaccinat: UNK Second COVID19 Vaccination Ravindra: UNK Third COVID19 Vaccination Date: UNK Past Medical History Surgery/Hospitalization HX: Tonsillectomy, ASTHMA Surgeries: Yes Tonsillectomy Respiratory: Yes Asthma Cardiac: No Neurological: No Genitourinary: No Gastrointestinal: No Musculoskeletal: No Endocrine: No HEENT: No Cancer: No Psychosocial: Yes (Admissions for suicidal ideation, polysubstance abuse, self cutting) Anxiety, Schizophrenia, Depression Family Medical History No Pertinent Family Hx SOCIAL HISTORY: -SMOKES 1 PPD -DRUGS--THC, RX DRUGS -ETOH--OCCASIONAL USE Physical Exam Vital Signs - First Documented 12/30/22 23:35 Temp 37.0 Pulse 97 Resp 20 B/P (MAP) 131/91 (104) Pulse Ox 97 Capillary Refill : Height, Weight, BMI Height: '" Weight: lbs. oz. kg; 34.00 BMI Method: General Appearance: WD/WN, no apparent distress Respiratory: normal breath sounds Cardiovascular: regular rate, rhythm Extremities: normal inspection, normal capillary refill Neurologic/Psychiatric: no motor/sensory deficits, alert, other (FLAT AFFECT. ) Appearance/Memory: impaired insight Behavior/Eye Contact: cooperative, normal speech Thoughts/Hallucinations: no apparent hallucination, flight of ideas, paranoid, temple Skin: normal color, warm/dry, tattoos/piercings, other (EXTENSIVE OLD SCARRING TO FOREARMS FROM PRIOR SELF-CUTTING. NO EVIDENCE OF RECENT SELF-HARM) Progress/Results/Core Measures Results/Orders Lab Results Laboratory Tests Test 12/30/22 23:48 12/30/22 23:57 Range/Units Urine Color YELLOW Urine Clarity CLEAR Urine pH 6.0 5-9 Urine Specific [place] >=1.030 1.016-1.022 Urine Protein TRACE NEGATIVE Urine Glucose (UA) NEGATIVE NEGATIVE Urine Ketones NEGATIVE NEGATIVE Urine Nitrite NEGATIVE NEGATIVE Urine Bilirubin NEGATIVE NEGATIVE Urine Urobilinogen 0.2 < = 1.0 MG/DL Urine Leukocyte Esterase NEGATIVE NEGATIVE Urine RBC (Auto) NEGATIVE NEGATIVE Urine RBC NONE /HPF Urine WBC RARE /HPF Urine Crystals NONE /LPF Urine Bacteria NEGATIVE /HPF Urine Casts NONE /LPF Urine Mucus LARGE H /LPF Urine Culture Indicated NO Urine Opiates Screen NEGATIVE NEGATIVE Urine Oxycodone Screen NEGATIVE NEGATIVE Urine Methadone Screen NEGATIVE NEGATIVE Urine Propoxyphene Screen NEGATIVE NEGATIVE Urine Barbiturates Screen NEGATIVE NEGATIVE Ur Tricyclic Antidepressants Screen POSITIVE H NEGATIVE Urine Phencyclidine Screen NEGATIVE NEGATIVE Urine Amphetamines Screen NEGATIVE NEGATIVE Urine Methamphetamines Screen NEGATIVE NEGATIVE Urine Benzodiazepines Screen NEGATIVE NEGATIVE Urine Cocaine Screen NEGATIVE NEGATIVE Urine Cannabinoids Screen NEGATIVE NEGATIVE White Blood Count 8.0 4.3-11.0 10^3/uL Red Blood Count 4.93 4.30-5.52 10^6/uL Hemoglobin 14.5 13.3-17.7 g/dL Hematocrit 42 40-54 % Mean Corpuscular Volume 85 80-99 fL Mean Corpuscular Hemoglobin 29 25-34 pg Mean Corpuscular Hemoglobin Concent 35 32-36 g/dL Red Cell Distribution Width 12.3 10.0-14.5 % Platelet Count 230 130-400 10^3/uL Mean Platelet Volume 8.8 L 9.0-12.2 fL Immature Granulocyte % (Auto) 0 % Neutrophils (%) (Auto) 53 42-75 % Lymphocytes (%) (Auto) 36 12-44 % Monocytes (%) (Auto) 9 0-12 % Eosinophils (%) (Auto) 2 0-10 % Basophils (%) (Auto) 0 0-10 % Neutrophils # (Auto) 4.2 1.8-7.8 10^3/uL Lymphocytes # (Auto) 2.9 1.0-4.0 10^3/uL Monocytes # (Auto) 0.7 0.0-1.0 10^3/uL Eosinophils # (Auto) 0.2 0.0-0.3 10^3/uL Basophils # (Auto) 0.0 0.0-0.1 10^3/uL Immature Granulocyte # (Auto) 0.0 0.0-0.1 10^3/uL Sodium Level 140 135-145 MMOL/L Potassium Level 3.6 3.6-5.0 MMOL/L Chloride Level 102 98-107 MMOL/L Carbon Dioxide Level 25 21-32 MMOL/L Anion Gap 13 5-14 MMOL/L Blood Urea Nitrogen 10 7-18 MG/DL Creatinine 0.82 0.60-1.30 MG/DL Estimat Glomerular Filtration Rate 127 BUN/Creatinine Ratio 12 Glucose Level 111 H 70-105 MG/DL Calcium Level 9.3 8.5-10.1 MG/DL Corrected Calcium 8.9 8.5-10.1 MG/DL Total Bilirubin 0.8 0.1-1.0 MG/DL Aspartate Amino Transf (AST/SGOT) 22 5-34 U/L Alanine Aminotransferase (ALT/SGPT) 33 0-55 U/L Alkaline Phosphatase 86 40-136 U/L Total Protein 7.2 6.4-8.2 GM/DL Albumin 4.5 3.2-4.5 GM/DL Salicylates Level < 5.0 L 5.0-20.0 MG/DL Acetaminophen Level < 10 L 10-30 UG/ML Serum Alcohol < 10 <10 MG/DL My Orders Orders - CAN PENALOZA DO Acetaminophen (12/30/22 23:33) Alcohol (12/30/22 23:33) Cbc And Automated Diff (12/30/22 23:33) Comprehensive Metabolic Panel (12/30/22 23:33) Drug Screen Stat (Urine) (12/30/22 23:33) Salicylate (12/30/22 23:33) Ua Culture If Indicated (12/30/22 23:33) Vital Signs/I&O 12/30/22 23:35 Temp 37.0 Pulse 97 Resp 20 B/P (MAP) 131/91 (104) Pulse Ox 97 Progress Progress Note : Progress Note VITALS STABLE LABS: -CBC NORMAL -CMP NORMAL -UA CLEAR -ETOH NEGATIVE -UDS + TRICYCLICS PT DOES NOT MEET ANY CRITERIA FOR MENTAL HEALTH SCREEN AT THIS TIME DISCUSSED PLAN OF CARE, AND NOW PT STATES "NOW YOU NEED TO GIVE ME SOMETHING TO SLEEP" AND PT STATES HE IS JUST GOING TO SLEEP HERE IN ER FOR THE REST OF THE NIGHT "BECAUSE OTHERWISE I'LL BE OUTSIDE AND I DON'T WANT TO SLEEP OUTSIDE" I ADVISED PT THAT I WOULD NOT BE GIVING HIM ANY KIND OF SLEEPING MEDICATION, AND THAT HE COULD NOT SLEEP HERE IN ER, AND THAT HE WAS BEING DISMISSED AT THIS TIME. ( PT HAS COME TO ER ON PRIOR OCCASIONS, JUST BECAUSE HE WANTED SOMEWHERE TO SLEEP) WILL DISMISS TO HOME AND HAVE PT FOLLOW UP WITH [facility] IN THE MORNING REVIEWED PRIOR RECORDS--ALL ER VISITS DISCUSSED TEST RESULTS, ANTICIPATED COURSE, SYMPTOMATIC TREATMENT, NEED FOR FOLLOW UP AND RETURN PRECAUTIONS Departure Impression Primary Impression: Schizophrenia Additional Impression: Cigarette smoker Disposition: 01 HOME, SELF-CARE Condition: Stable Departure-Patient Inst. Decision time for Depature: 00:33 Referrals: ROMELIA BEAN APRN (PCP) Primary Care Physician [facility] (Family) Primary Care Physician Patient Instructions: Schizophrenia (DC), Quitting Smoking ED Add. Discharge Instructions: TAKE YOUR MEDICATIONS EXACTLY PRESCRIBED--DO NOT TAKE MORE THAN WHAT IS PRESCRIBED, AND DO NOT MISS DOSES OF MEDICATIONS DO NOT TAKE ANY MEDICATIONS OFF THE STREET OR THAT ARE NOT PRESCRIBED TO YOU BY A DOCTOR FOLLOW UP WITH YOUR MENTAL HEALTH PROVIDER THIS MORNING FOR FURTHER CARE--CALL THIS MORNING TO MAKE AN APPOINTMENT CAN PENALOZA DO Dec 30, 2022 23:37
[2022-12-31 00:06] LABS: BASOPHILS % (AUTO) 0 % (0-10); EOSINOPHILS # (AUTO) 0.2 10^3/uL (0.0-0.3); EOSINOPHILS % (AUTO) 2 % (0-10); HEMATOCRIT 42 % (40-54); HEMOGLOBIN 14.5 g/dL (13.3-17.7); LYMPHOCYTES # (AUTO) 2.9 10^3/uL (1.0-4.0); LYMPHOCYTES % (AUTO) 36 % (12-44); MEAN CORPUSCULAR HEMOGLOBIN 29 pg (25-34); MEAN CORPUSCULAR HGB CONC 35 g/dL (32-36); MEAN CORPUSCULAR VOLUME 85 fL (80-99); MEAN PLATELET VOLUME 8.8 fL (9.0-12.2); MONOCYTES # (AUTO) 0.7 10^3/uL (0.0-1.0); MONOCYTES % (AUTO) 9 % (0-12); NEUTROPHILS # (AUTO) 4.2 10^3/uL (1.8-7.8); NEUTROPHILS % (AUTO) 53 % (42-75); PLATELET COUNT 230 10^3/uL (130-400)
[2022-12-31 00:10] LABS: CLARITY,URINE CLEAR; COLOR,URINE YELLOW
[2022-12-31 00:11] LABS: BACTERIA,URINE NEGATIVE /HPF; BILIRUBIN,URINE NEGATIVE (NEGATIVE); GLUCOSE, URINE (UA) NEGATIVE (NEGATIVE); KETONES,URINE NEGATIVE (NEGATIVE); LEUKOCYTE ESTERASE ,URINE NEGATIVE (NEGATIVE); NITRITE,URINE NEGATIVE (NEGATIVE); PROTEIN,URINE TRACE (NEGATIVE); WBC,URINE RARE /HPF
[2022-12-31 00:16] LABS: ALBUMIN 4.5 GM/DL (3.2-4.5); CHLORIDE 102 MMOL/L (98-107); POTASSIUM 3.6 MMOL/L (3.6-5.0); SODIUM 140 MMOL/L (135-145)
[2022-12-31 00:18] LABS: CALCIUM 9.3 MG/DL (8.5-10.1)
[2022-12-31 00:18] LABS: AMPHETAMINE SCREEN, URINE NEGATIVE (NEGATIVE); BARBITURATE SCREEN URINE NEGATIVE (NEGATIVE); CANNABINOID SCREEN, URINE NEGATIVE (NEGATIVE); COCAINE SCREEN URINE NEGATIVE (NEGATIVE); METHADONE STAT NEGATIVE (NEGATIVE); OPIATE SCREEN URINE NEGATIVE (NEGATIVE); OXYCODONE STAT NEGATIVE (NEGATIVE); PROPOXYPHENE STAT NEGATIVE (NEGATIVE); TRICYCLIC ANTIDEPRESSANTS SCRE POSITIVE (NEGATIVE)
[2022-12-31 00:19] LABS: GLUCOSE 111 MG/DL (70-105); TOTAL PROTEIN 7.2 GM/DL (6.4-8.2)
[2022-12-31 00:20] LABS: CARBON DIOXIDE 25 MMOL/L (21-32)
[2022-12-31 00:21] LABS: BILIRUBIN,TOTAL 0.8 MG/DL (0.1-1.0)
[2022-12-31 00:23] LABS: ALKALINE PHOSPHATASE 86 U/L (40-136); CREATININE SERUM 0.82 MG/DL (0.60-1.30); GFR ESTIMATED 127
[2022-12-31 00:24] LABS: ACETAMINOPHEN < 10 UG/ML (10-30); BUN/CREATININE RATIO 12
[2022-12-31 00:25] LABS: SALICYLATE < 5.0 MG/DL (5.0-20.0)
[2022-12-31 00:26] LABS: ALANINE AMINOTRANSFERASE 33 U/L (0-55)
== END 2022-12-31 00:43 | disposition home or self-care (01) ==
LOC: EDUNIT# 23:32 → ER 23:34
DX: F20.9 Schizophrenia, unspecified (principal); F17.210 Nicotine dependence, cigarettes, uncomplicated
CPT/HCPCS: 80053; 80306; 81000; 85025; 99283; G0480 ×3; 36415; 80320; 80329

== ENCOUNTER 2023-02-08 07:04 | Emergency (ER) | payer MEDICAID ==
[~2023-02-08] VITALS: Ht 172.7 cm; Wt 104.3 kg
--- NOTE | 2023-02-08 07:55 | ED General ---
General Chief Complaint: Abdominal/GI Problems Stated Complaint: ABD AND COLON PAIN Nursing Triage Note: PT AMBULATE TO ROOM 06 WITHOUT DIFFICULTY WITH C/O PAIN THAT TRAVELS FROM [facility] TO [facility] X3 MONTHS. PT REPORTS BEING SEE BY [facility] FOR SAME C/O X2 WITH LAST VISIT X1 MONTH AGO. PT REPORTS HX OF PAIN AT [facility] AND BEING TOLD BY [facility] THAT HE HAD AN INFECTION. PT DENIES N/V/D. PT STATES HIS FATHER FROM COLON CANCER AND IS WANTING SCREENED FOR COLON CANCER. Source of Information: Patient, Old Records Exam Limitations: No Limitations History of Present Illness Date Seen by Provider: Feb 08, 2023 Time Seen by Provider: 07:19 Allergies and Home Medications Allergies Coded Allergies: No Known Drug Allergies (Unverified , 05/26/21) Patient Home Medication List Lorazepam (Ativan) 0.5 Mg Tablet, 0.5 MG PO TID PRN for ANXIETY Prescribed by: GENOVEVA ROCK on 09/30/22 174 Past Ormugzh-Wjyuoq-Wqypkf Hx Patient Social History Tobacco Use?: Yes Tobacco type used: Cigarettes Smoking Status: Current Everyday Smoker Smokeless Tobacco Frequency: Never a User Use of E-Cig and/or Vaping dev: No Use of E-Cig and/or Vaping Luther: Never a User Substance use?: No Alcohol Use?: No Pt feels they are or have been: No Immunizations Up To Date First/Initial COVID19 Vaccinat: UNK Second COVID19 Vaccination Ravindra: UNK Third COVID19 Vaccination Date: UNK Past Medical History Surgery/Hospitalization HX: Tonsillectomy, ASTHMA Surgeries: Yes Tonsillectomy Respiratory: Yes Asthma Cardiac: No Neurological: No Genitourinary: No Gastrointestinal: No Musculoskeletal: No Endocrine: No HEENT: No Cancer: No Psychosocial: Yes (Admissions for suicidal ideation, polysubstance abuse, self cutting) Anxiety, Schizophrenia, Depression Family Medical History No Pertinent Family Hx SOCIAL HISTORY: -SMOKES 1 PPD -DRUGS--THC, RX DRUGS -ETOH--OCCASIONAL USE Physical Exam Vital Signs Vital Signs - First Documented 02/08/23 07:10 Temp 36.6 Pulse 90 Resp 17 B/P (MAP) 153/87 (109) O2 Delivery Room Air Capillary Refill : Less Than 3 Seconds Height, Weight, BMI Height: '" Weight: lbs. oz. kg; 34.00 BMI Method: Progress/Results/Core Measures Suspected Sepsis SIRS Temperature: Pulse: 90 Respiratory Rate: 17 Blood Pressure 153 /87 Mean: 109 Results/Orders Lab Results Laboratory Tests Test 02/08/23 07:10 02/08/23 07:40 Range/Units Urine Color YELLOW Urine Clarity CLEAR Urine pH 6.5 5-9 Urine Specific [place] 1.020 1.016-1.022 Urine Protein NEGATIVE NEGATIVE Urine Glucose (UA) NEGATIVE NEGATIVE Urine Ketones NEGATIVE NEGATIVE Urine Nitrite NEGATIVE NEGATIVE Urine Bilirubin NEGATIVE NEGATIVE Urine Urobilinogen 0.2 < = 1.0 MG/DL Urine Leukocyte Esterase NEGATIVE NEGATIVE Urine RBC (Auto) NEGATIVE NEGATIVE Urine RBC NONE /HPF Urine WBC NONE /HPF Urine Crystals NONE /LPF Urine Bacteria NEGATIVE /HPF Urine Casts NONE /LPF Urine Mucus NEGATIVE /LPF Urine Culture Indicated NO My Orders Orders - LESIA BREWER MD Ua Culture If Indicated (02/08/23 07:19) Fecal Occult Bedside (02/08/23 07:19) Chlamydia Trachomatis Urine (02/08/23 08:14) Neis Main Dna Urine Test (02/08/23 08:14) Bladder Scan (02/08/23 08:14) Vital Signs/I&O 02/08/23 07:10 Temp 36.6 Pulse 90 Resp 17 B/P (MAP) 153/87 (109) O2 Delivery Room Air Capillary Refill : Less Than 3 Seconds Blood Pressure Mean: 109 Point of Care Testing Fecal Occult: Negative Progress Note : Progress Note Bladder scan 43 mL. Departure Impression Primary Impression: Pelvic pain Additional Impressions: Rectal pain Dysuria Disposition: 01 HOME, SELF-CARE Condition: Stable Departure-Patient Inst. Decision time for Depature: 09:40 Referrals: ROMELIA BEAN APRN (PCP) Primary Care Physician [facility] (Family) Primary Care Physician Patient Instructions: Abdominal pain, Dysuria, Adult (DC) Add. Discharge Instructions: The exact cause of your symptoms is uncertain at this time. No abnormalities were found on examination of your anal and rectal area. No blood was detected during examination with Hemoccult testing. Your urine showed no signs of infection and you are not retaining a significant amount of urine in your bladder. Cultures of your urine are pending. Please follow-up with your primary care provider next week to review culture results. Return to care if you have worsening symptoms. Otherwise, make a follow-up appointment to discuss further with your primary care provider. All discharge instructions reviewed with patient and/or family. Voiced understanding. Copy Copies To 1: [facility]/LESIA VANCE MD Feb 08, 2023 07:54
[2023-02-08 08:02] LABS: CLARITY,URINE CLEAR; COLOR,URINE YELLOW
[2023-02-08 08:03] LABS: BACTERIA,URINE NEGATIVE /HPF; BILIRUBIN,URINE NEGATIVE (NEGATIVE); GLUCOSE, URINE (UA) NEGATIVE (NEGATIVE); KETONES,URINE NEGATIVE (NEGATIVE); LEUKOCYTE ESTERASE ,URINE NEGATIVE (NEGATIVE); NITRITE,URINE NEGATIVE (NEGATIVE); PH,URINE 6.5 (5-9); PROTEIN,URINE NEGATIVE (NEGATIVE)
[2023-02-08 09:55] VITALS: BP 153/87
== END 2023-02-08 09:55 | disposition home or self-care (01) ==
LOC: EDUNIT# 07:04 → ER 07:05
DX: K62.89 Other specified diseases of anus and rectum (principal); R30.0 Dysuria; F17.210 Nicotine dependence, cigarettes, uncomplicated; Z80.0 Family history of malignant neoplasm of digestive organs
CPT/HCPCS: 36415; 81000; 82274; 87491; 87591

== ENCOUNTER 2023-02-15 21:44 | Emergency (ER) | payer MEDICAID ==
[~2023-02-15] VITALS: Ht 172.7 cm; Wt 104.3 kg
[2023-02-15] MEDS ORDERED: NS IV 1000 ML 1,000 ML IV STA (21:52)
--- NOTE | 2023-02-15 21:57 | ED Psychosocial ---
General Chief Complaint: Suicidal Ideation Risk Stated Complaint: ETOH/SUICIDAL IDEATION Source: patient Exam Limitations: no limitations (YANELY PALMER) History of Present Illness Date Seen by Provider: Feb 15, 2023 Time Seen by Provider: 21:55 Initial Comments Patient is a 22-year-old male with a history of schizophrenia, SI who presents ED for suicidal ideations. Patient states around 1800 this evening started drinking vodka. Drank about a pint. Patient states he was feeling depressed. Started having suicidal thoughts with a plan of cutting himself. History of cutting in the past. Patient states about 2 to 3 months ago he was admitted to the [facility]. Stopped his Abilify about a week and a half ago as he states this was not helping with his symptoms. Patient does report hearing voices. Patient does see a therapist. Patient denies history of alcohol abuse. Denies history of any drug use. Denies of any current homicidal thoughts, visual changes, chest pain, shortness of breath, cough, nausea vomiting or diarrhea. Was brought to ED by EMS. Moderate suicidal risk. Patient is calm and cooperative. (YANELY PALMER) Allergies and Home Medications Allergies Coded Allergies: No Known Drug Allergies (Unverified , 05/26/21) Patient Home Medication List Home Medication List Reviewed: Yes (YANELY PALMER) Lorazepam (Ativan) 0.5 Mg Tablet, 0.5 MG PO TID PRN for ANXIETY Prescribed by: GENOVEVA ROCK on 09/30/22 7054 Review of Systems Constitutional: No chills, No diaphoresis, No fever, No malaise, No weakness EENTM: No hearing loss, No ear pain, No blurred vision Respiratory: No cough, No dyspnea on exertion Cardiovascular: No chest pain Gastrointestinal: No abdominal pain, No nausea, No vomiting Genitourinary: No decreased output, No discharge Musculoskeletal: No back pain, No joint pain Skin: No no symptoms reported Psychiatric/Neurological: Depressed, Other (SI) (YANELY PALMER) All Other Systems Reviewed Negative Unless Noted: Yes (YANELY PALMER) Past Zyxvtui-Maxeao-Yocvlf Hx Immunizations Up To Date First/Initial COVID19 Vaccinat: UNK Second COVID19 Vaccination Ravindra: UNK Third COVID19 Vaccination Date: UNK (YANELY PALMER) Past Medical History Surgery/Hospitalization HX: Tonsillectomy, ASTHMA Surgeries: Yes Tonsillectomy Respiratory: Yes Asthma Cardiac: No Neurological: No Genitourinary: No Gastrointestinal: No Musculoskeletal: No Endocrine: No HEENT: No Cancer: No Psychosocial: Yes (Admissions for suicidal ideation, polysubstance abuse, self cutting) Anxiety, Schizophrenia, Depression (YANELY PALMER) Family Medical History No Pertinent Family Hx SOCIAL HISTORY: -SMOKES 1 PPD -DRUGS--THC, RX DRUGS -ETOH--OCCASIONAL USE (YANELY PALMER) Physical Exam Vital Signs - First Documented 02/15/23 02/16/23 21:44 03:00 Temp 36.8 Pulse 96 Resp 16 B/P (MAP) 126/85 (99) Pulse Ox 97 O2 Delivery Room Air (LESIA BREWER MD) Capillary Refill : (YANELY PALMER) Height, Weight, BMI Height: '" Weight: lbs. oz. 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, no motor/sensory deficits, alert, normal mood/affect, oriented x 3 Appearance/Memory: appropriate appearance, appropriate insight Behavior/Eye Contact: cooperative, good eye contact Thoughts/Hallucinations: auditory hallucinations, other (SI) Skin: normal color, warm/dry Lymphatic: no adenopathy (YANELY PALMER) Progress/Results/Core Measures Results/Orders Lab Results Laboratory Tests Test 02/15/23 21:52 02/15/23 21:56 02/15/23 22:20 02/16/23 03:00 Range/Units Urine Color YELLOW Urine Clarity CLEAR Urine pH 5.0 5-9 Urine Specific [place] 1.020 1.016-1.022 Urine Protein NEGATIVE NEGATIVE Urine Glucose (UA) NEGATIVE NEGATIVE Urine Ketones NEGATIVE NEGATIVE Urine Nitrite NEGATIVE NEGATIVE Urine Bilirubin NEGATIVE NEGATIVE Urine Urobilinogen 0.2 < = 1.0 MG/DL Urine Leukocyte Esterase NEGATIVE NEGATIVE Urine RBC (Auto) TRACE H NEGATIVE Urine RBC RARE /HPF Urine WBC NONE /HPF Urine Squamous Epithelial Cells NONE /HPF Urine Crystals NONE /LPF Urine Bacteria TRACE /HPF Urine Casts NONE /LPF Urine Mucus NEGATIVE /LPF Urine Culture Indicated NO Urine Opiates Screen NEGATIVE NEGATIVE Urine Oxycodone Screen NEGATIVE NEGATIVE Urine Methadone Screen NEGATIVE NEGATIVE Urine Barbiturates Screen NEGATIVE NEGATIVE Ur Tricyclic Antidepressants Screen NEGATIVE NEGATIVE Urine Phencyclidine Screen NEGATIVE NEGATIVE Urine Amphetamines Screen NEGATIVE NEGATIVE Urine Methamphetamines Screen NEGATIVE NEGATIVE Urine Benzodiazepines Screen NEGATIVE NEGATIVE Urine Cocaine Screen NEGATIVE NEGATIVE Urine Cannabinoids Screen NEGATIVE NEGATIVE Influenza Type A (RT-PCR) Not Detected Not Detecte Influenza Type B (RT-PCR) Not Detected Not Detecte SARS-CoV-2 RNA (RT-PCR) Not Detected Not Detecte White Blood Count 6.8 4.3-11.0 10^3/uL Red Blood Count 5.05 4.30-5.52 10^6/uL Hemoglobin 15.1 13.3-17.7 g/dL Hematocrit 44 40-54 % Mean Corpuscular Volume 88 80-99 fL Mean Corpuscular Hemoglobin 30 25-34 pg Mean Corpuscular Hemoglobin Concent 34 32-36 g/dL Red Cell Distribution Width 12.5 10.0-14.5 % Platelet Count 231 130-400 10^3/uL Mean Platelet Volume 8.7 L 9.0-12.2 fL Immature Granulocyte % (Auto) 0 % Neutrophils (%) (Auto) 56 42-75 % Lymphocytes (%) (Auto) 32 12-44 % Monocytes (%) (Auto) 9 0-12 % Eosinophils (%) (Auto) 3 0-10 % Basophils (%) (Auto) 0 0-10 % Neutrophils # (Auto) 3.8 1.8-7.8 10^3/uL Lymphocytes # (Auto) 2.2 1.0-4.0 10^3/uL Monocytes # (Auto) 0.6 0.0-1.0 10^3/uL Eosinophils # (Auto) 0.2 0.0-0.3 10^3/uL Basophils # (Auto) 0.0 0.0-0.1 10^3/uL Immature Granulocyte # (Auto) 0.0 0.0-0.1 10^3/uL Sodium Level 140 135-145 MMOL/L Potassium Level 3.6 3.6-5.0 MMOL/L Chloride Level 105 98-107 MMOL/L Carbon Dioxide Level 23 21-32 MMOL/L Anion Gap 12 5-14 MMOL/L Blood Urea Nitrogen 7 7-18 MG/DL Creatinine 0.73 0.60-1.30 MG/DL Estimat Glomerular Filtration Rate 132 BUN/Creatinine Ratio 10 Glucose Level 118 H 70-105 MG/DL Calcium Level 9.0 8.5-10.1 MG/DL Corrected Calcium 8.6 8.5-10.1 MG/DL Total Bilirubin 0.5 0.1-1.0 MG/DL Aspartate Amino Transf (AST/SGOT) 21 5-34 U/L Alanine Aminotransferase (ALT/SGPT) 27 0-55 U/L Alkaline Phosphatase 80 40-136 U/L Total Protein 7.2 6.4-8.2 GM/DL Albumin 4.5 3.2-4.5 GM/DL Salicylates Level < 5.0 L 5.0-20.0 MG/DL Acetaminophen Level < 10 L 10-30 UG/ML Serum Alcohol 93 H < 10 <10 MG/DL (LESIA BREWER MD) Vital Signs/I&O 02/15/23 02/16/23 21:44 03:00 Temp 36.8 Pulse 96 100 Resp 16 16 B/P (MAP) 126/85 (99) 119/78 (92) Pulse Ox 97 98 O2 Delivery Room Air Room Air 02/16/23 00:00 Intake Total 1000 ml Balance 1000 ml (LESIA BREWER MD) Progress Progress Note : Time: 07:02 Progress Note Care of this patient was assumed from Dr. Francois at shift change with behavioral health screening pending. Behavioral health screening has been performed and safety plan was recommended. Safety plan is being signed by the patient and he will be discharged. See discharge instructions for further discussion. Labs were reviewed and interpreted by me in their entirety. CBC was normal. CMP demonstrated no clinically relevant abnormalities. Glucose was slightly elevated at 118. Urine toxicology was negative. Serum alcohol was initially 93. Repeat serum alcohol is 0300 was undetectable. Urinalysis was normal. Viral swabs for influenza and COVID were negative. ECG was interpreted by me as unremarkable as noted below. (LESIA BREWER MD) Comment Sinus rhythm, 94 bpm, QRS duration 93 MS, QTc 381 MS. (YANELY PALMER) Initial ECG Impression Date: Feb 16, 2023 Initial ECG Impression Time: 07:00 Initial ECG Rate: 94 Initial ECG Rhythm: Normal Sinus Initial ECG Intervals: Normal Initial ECG Impression: Normal (LESIA BREWER MD) Departure Communication (PCP) Reviewed previous ER visits, H&P, lab testing. Differential diagnosis SI, schizophrenia, hallucinations, alcohol abuse. Patient presents to the ED for suicidal ideations and auditory hallucinations. Stopped his Abilify as it was not working.. Has been drinking alcohol. Denies history of alcohol abuse. Patient reports thoughts of wanting to cut himself. Patient denies acting upon these thoughts this evening. Moderate risk for suicide. 15-minute checks. Re move patient's belongings. General work-up was initiated. Patient was started on liter of fluid. Pending lab work. Patient was discussed with Dr. Francois who took over care at 11 PM awaiting lab work and psych evaluation. (YANELY PALMER) Impression Primary Impression: Suicidal ideation Additional Impression: Alcohol intoxication Qualified Codes: F10.929 - Alcohol use, unspecified with intoxication, unspecified Disposition: 01 HOME, SELF-CARE Condition: Stable Departure-Patient Inst. Decision time for Depature: 07:00 (LESIA BREWER MD) Referrals: ROMELIA BEAN APRN (PCP) Primary Care Physician [facility] (Family) Primary Care Physician Patient Instructions: OUTPT MENTAL HEALTH SERVICES Add. Discharge Instructions: Strictly follow the safety plan as outlined by the behavioral health screener. Avoid use of any mind altering substances such as alcohol, marijuana, etc. Follow-up with your primary care provider and behavioral health provider soon as possible. You may call the behavioral health crisis line at [phone] for any future mental health emergencies. Alternatively you may return to the emergency room or call 911 if necessary. All discharge instructions reviewed with patient and/or family. Voiced understanding. YANELY PALMER Feb 15, 2023 21:57 LESIA BREWER MD Feb 16, 2023 07:02
[2023-02-15] MEDS ORDERED: NS IV 1000 ML 1,000 ML IV SCH (22:00)
[2023-02-15 22:04] LABS: BILIRUBIN,URINE NEGATIVE (NEGATIVE); CLARITY,URINE CLEAR; COLOR,URINE YELLOW; GLUCOSE, URINE (UA) NEGATIVE (NEGATIVE); KETONES,URINE NEGATIVE (NEGATIVE); LEUKOCYTE ESTERASE ,URINE NEGATIVE (NEGATIVE); NITRITE,URINE NEGATIVE (NEGATIVE); PROTEIN,URINE NEGATIVE (NEGATIVE)
[2023-02-15 22:07] LABS: BACTERIA,URINE TRACE /HPF; RBC,URINE RARE /HPF
[2023-02-15 22:22] LABS: AMPHETAMINE SCREEN, URINE NEGATIVE (NEGATIVE); BARBITURATE SCREEN URINE NEGATIVE (NEGATIVE); CANNABINOID SCREEN, URINE NEGATIVE (NEGATIVE); COCAINE SCREEN URINE NEGATIVE (NEGATIVE); METHADONE STAT NEGATIVE (NEGATIVE); OPIATE SCREEN URINE NEGATIVE (NEGATIVE); OXYCODONE STAT NEGATIVE (NEGATIVE); TRICYCLIC ANTIDEPRESSANTS SCRE NEGATIVE (NEGATIVE)
[2023-02-15 22:28] LABS: BASOPHILS % (AUTO) 0 % (0-10); EOSINOPHILS # (AUTO) 0.2 10^3/uL (0.0-0.3); EOSINOPHILS % (AUTO) 3 % (0-10); HEMATOCRIT 44 % (40-54); HEMOGLOBIN 15.1 g/dL (13.3-17.7); LYMPHOCYTES # (AUTO) 2.2 10^3/uL (1.0-4.0); LYMPHOCYTES % (AUTO) 32 % (12-44); MEAN CORPUSCULAR HEMOGLOBIN 30 pg (25-34); MEAN CORPUSCULAR HGB CONC 34 g/dL (32-36); MEAN CORPUSCULAR VOLUME 88 fL (80-99); MEAN PLATELET VOLUME 8.7 fL (9.0-12.2); MONOCYTES # (AUTO) 0.6 10^3/uL (0.0-1.0); MONOCYTES % (AUTO) 9 % (0-12); NEUTROPHILS # (AUTO) 3.8 10^3/uL (1.8-7.8); NEUTROPHILS % (AUTO) 56 % (42-75); PLATELET COUNT 231 10^3/uL (130-400); WHITE BLOOD COUNT 6.8 10^3/uL (4.3-11.0)
[2023-02-15 22:47] LABS: ALANINE AMINOTRANSFERASE 27 U/L (0-55); ALBUMIN 4.5 GM/DL (3.2-4.5); ALKALINE PHOSPHATASE 80 U/L (40-136); BILIRUBIN,TOTAL 0.5 MG/DL (0.1-1.0); BUN/CREATININE RATIO 10; CARBON DIOXIDE 23 MMOL/L (21-32); CHLORIDE 105 MMOL/L (98-107); CREATININE SERUM 0.73 MG/DL (0.60-1.30); GFR ESTIMATED 132; GLUCOSE 118 MG/DL (70-105); POTASSIUM 3.6 MMOL/L (3.6-5.0); SALICYLATE < 5.0 MG/DL (5.0-20.0); SODIUM 140 MMOL/L (135-145); TOTAL PROTEIN 7.2 GM/DL (6.4-8.2)
[2023-02-15 23:12] LABS: ACETAMINOPHEN < 10 UG/ML (10-30)
[2023-02-16 07:32] VITALS: BP 115/72
== END 2023-02-16 07:34 | disposition home or self-care (01) ==
LOC: EDUNIT# 21:46 → ER 21:47
DX: R45.851 Suicidal ideations (principal); F10.129 Alcohol abuse with intoxication, unspecified; F17.210 Nicotine dependence, cigarettes, uncomplicated
CPT/HCPCS: 80053; 80306; 81000; 85025; 87636; 93005; 96360; 99284; G0480 ×4; 36415; 80320; 80329

== ENCOUNTER 2023-02-27 15:50 | Emergency (ER) | payer MEDICAID ==
[~2023-02-27] VITALS: Ht 172 cm; Wt 104.0 kg
--- NOTE | 2023-02-27 16:21 | ED Psychosocial ---
General Chief Complaint: Psych/Social Disorder Stated Complaint: PSYCH EVAL Nursing Triage Note: PT TO TRIAGE, SENT FROM DR KABA OFFICE WITH C/O S.I., PT HAS HX OF DEPRESSION, ANXIETY AND SHIZOPHRENIA, JUST STARTED ABILIFY TODAY. PT DENIES HAVING ATTEMPTED OR A PLAN TO HURT SELF. PT STATES HE JUST NEEDS SOME HELP. Source: patient, old records Exam Limitations: no limitations (LESIA BREWER MD) History of Present Illness Date Seen by Provider: Feb 27, 2023 Time Seen by Provider: 16:00 Initial Comments This 22-year-old young man presents to the emergency room with complaints of depression and suicidal ideation. He was sent here from Dr. Toby Kaba's office. He has had a long history of schizophrenia and depression. He believes his depression is triggered by uncontrolled schizophrenia. He has been having recent active delusions and hallucinations. Hallucinations are primarily consisting of conversational voices and vague visual hallucinations. He reports some of the hallucinations appear like demons. The auditory hallucinations are described as distant conversations or extra words heard in his conversations. He denies any command hallucinations. He admits to substance use including smoking, occasional alcohol, and CBD use. He has been prescribed numerous psychoactive medications in the last year including Seroquel, Depakote, clonidine, Lexapro, sertraline, hydroxyzine, and Invega. He most recently started Abilify and took 1 dose today. He admits that he is never compliant with any of these medications long enough to determine if they are effective. He states usually trying them for a few days and giving up on them too soon or simply not filling the prescription. He reports never starting the Depakote prescribed in December. He reports sitting in his home for a few hours today contemplating cutting a vein as a suicide attempt. (LESIA BREWER MD) Allergies and Home Medications Allergies Coded Allergies: No Known Drug Allergies (Unverified , 05/26/21) Patient Home Medication List Home Medication List Reviewed: Yes (LESIA BREWER MD) Lorazepam (Ativan) 0.5 Mg Tablet, 0.5 MG PO TID PRN for ANXIETY Prescribed by: GENOVEVA ROCK on 09/30/22 6843 Review of Systems Constitutional: no symptoms reported EENTM: no symptoms reported Respiratory: no symptoms reported Cardiovascular: no symptoms reported Gastrointestinal: no symptoms reported Genitourinary: no symptoms reported Musculoskeletal: no symptoms reported Skin: no symptoms reported Psychiatric/Neurological: See HPI (LESIA BREWER MD) Past Manxglk-Wwiqhk-Nbhhtm Hx Patient Social History Tobacco Use?: Yes Tobacco type used: Cigarettes Use of E-Cig and/or Vaping dev: No Substance use?: Yes Substance type: Other Alcohol Use?: Yes (CBD) Alcohol Frequency: Once in a while (LESIA BREWER MD) Immunizations Up To Date First/Initial COVID19 Vaccinat: UNK Second COVID19 Vaccination Ravindra: UNK Third COVID19 Vaccination Date: UNK (LESIA BREWER MD) Past Medical History Surgery/Hospitalization HX: Tonsillectomy, ASTHMA, SCHIZOPHRENIA Surgeries: Yes Tonsillectomy Respiratory: Yes Asthma Cardiac: No Neurological: No Genitourinary: No Gastrointestinal: No Musculoskeletal: No Endocrine: No HEENT: No Cancer: No Psychosocial: Yes (Admissions for suicidal ideation, polysubstance abuse, self cutting) Anxiety, Schizophrenia, Depression (LESIA BREWER MD) Family Medical History No Pertinent Family Hx SOCIAL HISTORY: -SMOKES 1 PPD -DRUGS--THC, RX DRUGS -ETOH--OCCASIONAL USE (LESIA BREWER MD) Physical Exam Vital Signs - First Documented 02/27/23 15:59 Temp 36.4 Pulse 99 Resp 20 B/P (MAP) 128/73 (91) Pulse Ox 99 O2 Delivery Room Air (ALBERTO NGUYEN MD) Capillary Refill : Less Than 3 Seconds (LESIA BREWER MD) Height, Weight, BMI Height: '" Weight: lbs. oz. kg; 35.00 BMI Method: General Appearance: WD/WN, no apparent distress HEENT: normal ENT inspection, pharynx normal Neck: full range of motion Respiratory: lungs clear, no respiratory distress Cardiovascular: regular rate, rhythm, no edema, no murmur Gastrointestinal: non tender, soft Extremities: normal inspection Neurologic/Psychiatric: no motor/sensory deficits, alert, other (Suicidal ideation) Appearance/Memory: appropriate appearance, appropriate insight Behavior/Eye Contact: cooperative, avoids eye contact Thoughts/Hallucinations: auditory hallucinations, delusions Skin: normal color, warm/dry (LESIA BREWER MD) Progress/Results/Core Measures Results/Orders Blood Pressure Mean: 91 Progress Progress Note : Time: 18:14 Progress Note Patient was interviewed and examined. Because he is reporting suicidal ideation with thoughts of "cutting a vein", he will be screened after medical clearance. I have reviewed and interpreted labs. CBC, CMP, urinalysis, serum toxicology, and viral swabs were all clinically unremarkable by my interpretation. Urine toxicology screen was positive for tricyclic's and cannabinoids. Patient is presently awaiting behavioral health screening. Care is being transitioned to Dr. Nguyen at this time. (LESIA BREWER MD) Progress Note : Time: 05:00 Progress Note Patient was accepted to [facility]. They did not require a doc-to-doc. Hallie Renteria will transport. Patient has rested comfortably throughout his ED stay. No deterioration in condition or concerning behaviors. (ALBERTO NGUYEN MD) Initial ECG Impression Date: Feb 27, 2023 Initial ECG Impression Time: 16:37 Initial ECG Rate: 72 Initial ECG Rhythm: Normal Sinus Initial ECG Intervals: Normal Initial ECG Impression: Normal Comment Normal sinus rhythm with no ST elevation or depression. No abnormal intervals or axis deviation. (LESIA BREWER MD) Departure Impression Primary Impression: Suicidal ideation Additional Impressions: Hallucinations Schizophrenia Qualified Codes: F20.9 - Schizophrenia, unspecified Noncompliance with medication regimen Disposition: 65 XFER TO PSYCH HOSP/UNIT Condition: Stable Transfer BH Medically Cleared for Xfer: Yes Transfer Reason: Exceeds level of care Transfer Progress Notes Accepted per Nursing staff on behalf of Psychiatrist Transfer Time: 05:30 Transfer Facility: [facility] Method of Transfer: Private Vehicle (ALBERTO NGUYEN MD) Departure-Patient Inst. Referrals: ROMELIA BEAN APRN (PCP) Primary Care Physician [facility] (Family) Primary Care Physician Copy Copies To 1: TOBY KABA MD, JOSHUA T MD Feb 27, 2023 16:21 ALBERTO NGUYEN MD Mar 02, 2023 19:11
[2023-02-27 17:00] LABS: BASOPHILS % (AUTO) 1 % (0-10); EOSINOPHILS # (AUTO) 0.2 10^3/uL (0.0-0.3); EOSINOPHILS % (AUTO) 3 % (0-10); HEMATOCRIT 44 % (40-54); HEMOGLOBIN 15.3 g/dL (13.3-17.7); LYMPHOCYTES # (AUTO) 2.3 10^3/uL (1.0-4.0); LYMPHOCYTES % (AUTO) 30 % (12-44); MEAN CORPUSCULAR HEMOGLOBIN 30 pg (25-34); MEAN CORPUSCULAR HGB CONC 35 g/dL (32-36); MEAN CORPUSCULAR VOLUME 86 fL (80-99); MEAN PLATELET VOLUME 8.9 fL (9.0-12.2); MONOCYTES # (AUTO) 0.7 10^3/uL (0.0-1.0); MONOCYTES % (AUTO) 9 % (0-12); NEUTROPHILS # (AUTO) 4.4 10^3/uL (1.8-7.8); NEUTROPHILS % (AUTO) 58 % (42-75); PLATELET COUNT 234 10^3/uL (130-400); WHITE BLOOD COUNT 7.7 10^3/uL (4.3-11.0)
[2023-02-27 17:09] LABS: ALBUMIN 4.5 GM/DL (3.2-4.5); CHLORIDE 103 MMOL/L (98-107); POTASSIUM 3.5 MMOL/L (3.6-5.0); SODIUM 139 MMOL/L (135-145)
[2023-02-27 17:10] LABS: CALCIUM 9.1 MG/DL (8.5-10.1)
[2023-02-27 17:12] LABS: GLUCOSE 113 MG/DL (70-105); TOTAL PROTEIN 7.5 GM/DL (6.4-8.2)
[2023-02-27 17:13] LABS: CARBON DIOXIDE 25 MMOL/L (21-32)
[2023-02-27 17:15] LABS: ALKALINE PHOSPHATASE 76 U/L (40-136); GFR ESTIMATED 128
[2023-02-27 17:17] LABS: BUN/CREATININE RATIO 16
[2023-02-27 17:18] LABS: SALICYLATE < 5.0 MG/DL (5.0-20.0)
[2023-02-27 17:19] LABS: ALANINE AMINOTRANSFERASE 31 U/L (0-55)
[2023-02-27 17:21] LABS: ACETAMINOPHEN < 10 UG/ML (10-30)
[2023-02-27 17:26] LABS: BACTERIA,URINE NEGATIVE /HPF; BILIRUBIN,URINE NEGATIVE (NEGATIVE); CLARITY,URINE CLEAR; COLOR,URINE YELLOW; GLUCOSE, URINE (UA) NEGATIVE (NEGATIVE); KETONES,URINE NEGATIVE (NEGATIVE); LEUKOCYTE ESTERASE ,URINE NEGATIVE (NEGATIVE); NITRITE,URINE NEGATIVE (NEGATIVE); PH,URINE 5.5 (5-9); PROTEIN,URINE NEGATIVE (NEGATIVE)
[2023-02-27 17:27] LABS: CALCIUM OXALATE CRYSTALS,UR FEW /LPF
[2023-02-27 17:30] LABS: AMPHETAMINE SCREEN, URINE NEGATIVE (NEGATIVE); BARBITURATE SCREEN URINE NEGATIVE (NEGATIVE); CANNABINOID SCREEN, URINE POSITIVE (NEGATIVE); COCAINE SCREEN URINE NEGATIVE (NEGATIVE); METHADONE STAT NEGATIVE (NEGATIVE); OPIATE SCREEN URINE NEGATIVE (NEGATIVE); OXYCODONE STAT NEGATIVE (NEGATIVE); TRICYCLIC ANTIDEPRESSANTS SCRE POSITIVE (NEGATIVE)
[2023-02-28 05:59] VITALS: BP 121/89
== END 2023-02-28 06:01 ==
LOC: EDUNIT# 15:50 → ER 15:52
DX: F20.9 Schizophrenia, unspecified (principal); Z91.148 Patient's other noncompliance with medication regimen for other reason; F17.210 Nicotine dependence, cigarettes, uncomplicated
CPT/HCPCS: 80053; 80306; 81000; 85025; 87636; 93005; 99283; G0480 ×3; 36415; 80320; 80329